=== PATIENT | female | born 1965 | race Caucasian/White ===

== ENCOUNTER 2025-01-02 08:20 | Outpatient (CLI) | payer BC, SELFPAY ==
--- OUTSIDE RECORDS SUMMARY | 2025-01-02 08:30 | XMS_ITS ---
Author Organization [facility] Address [address] [id number] Care Team Providers Care Resource Conservationist Name Role Phone Andrew Verma MD Primary Care Provider [phone] Active Problems Problem Noted Date Diagnosed Date Need for hepatitis B screening test 11/10/2024 Weight loss 11/10/2024 Assessment & Plan (11/10/2024 4:55 PM HAND TENNIS BALL COVERER): 100 lb weight loss compared weights from 2013 to present weight.. Had bariatric surgery prior to 2019. She has lost 57 lb dating back to 2022 maintained on Zenpep bound/GLP 1 GLP injectable product once weekly was prescribed by another provider Flu syndrome 10/09/2024 Assessment & Plan (10/09/2024 6:00 PM HAND TENNIS BALL COVERER): Patient currently has a flu feeling very fatigued and run down she tested positive for the flu approximately 10 days ago. Was not this at that time she did not get any antiviral medication. Subsequently she has been to urgent care type facility found no I have otitis media . Added on Augmentin she called after 3 days was not helping her. Patient has a salty taste in her mouth for last several days. She is very tired I have given her back to work slip for next week. Chest x-ray was done because of harsh coughing and level of illness x-ray was negative for any evidence of pneumonia. Acute noninfective otitis externa of both ears 0 10/09/2024 Assessment & Plan (10/09/2024 5:59 PM HAND TENNIS BALL COVERER): Patient went to urgent Care facility advised she had the otitis media her exam today ears are perfectly normal she complains of a throbbing behind her ears she also has the flu. She did call me after 3 days of antibiotics Augmentin that were not working I put her on Levaquin she took 1 tablet and made her feel horrible feel tired run down dizzy here. Acute cough 10/09/2024 Assessment & Plan (10/09/2024 6:01 PM HAND TENNIS BALL COVERER): Acute cough for several days x-rays negative she is bringing up clear sputum. Supportive care at this time Fatigue 10/08/2023 Assessment & Plan (10/09/2024 5:58 PM HAND TENNIS BALL COVERER): Patient currently has a flu feeling very fatigued and run down she tested positive for the flu approximately 10 days ago. Was not this at that time she did not get any antiviral medication. Subsequently she has been to urgent care type facility found no I have otitis media . Added on Augmentin she called after 3 days was not helping her. Assessment & Plan (10/08/2023 5:45 PM HAND TENNIS BALL COVERER): Fatigue shortness breath depression. Will check a B12 level she has not been done for several years she is status post GI bypass surgery. Has LS TSH level minimal however she is under care of endocrinology for status post thyroidectomy.. We will see this patient back in 4-6 weeks evaluate her fatigue status other component that she is on metoprolol 25 mg per day that has a small possibility this is causing her fatigue. SOB (shortness of breath) on exertion 10/08/2023 Assessment & Plan (10/08/2023 5:48 PM HAND TENNIS BALL COVERER): Patient complains of shortness of breath on exertion sometimes walking to the mailbox often times patients stopping completing shopping because of shortness of breath.. No chest pain no palpitation no chest tightness. Patient's peak flow is 460 is above 100% of expected question whether not this lady is anemic causing fatigue and shortness of breath workup in process. Patient's ambulatory pulse oximeter was completely normal Weight gain 12/25/2022 Grief at loss of child 06/18/2022 Assessment & Plan (12/26/2022 1:51 PM CDT): Patient advised me that her insurance company would not cover grief counseling. Advised to contact insurance company on who they will cover for for depression she can see someone for behavioral health issues regarding depression. Assessment & Plan (06/18/2022 5:36 PM CDT): Patient's son was killed in the last 60 days an industrial accident he was in his early 20s. Patient's [id number] are 2 small children now living with her. I have referred this patient grief counseling. Also made adjustments and a depressant medication. Hypothyroidism (acquired) 05/04/2020 Assessment & Plan (11/10/2024 4:48 PM HAND TENNIS BALL COVERER): Mg daily her medical charge entry specialist Dr. [facility] has changed her over to levothyroxine 200 mcg daily. Assessment & Plan (03/01/2024 4:09 PM CDT): Patient's thyroid is managed by medical charge entry specialist [facility]. Recently changed to Armor thyroid tablets 30 mg daily she thinks this has also helped her with her mood and weight changes. Assessment & Plan (11/11/2021 4:27 PM HAND TENNIS BALL COVERER): TSH level is 8.8 she had a maximum dose of 300 mcg per day of levothyroxine. This patient is taking calcium/Tums for heartburn which may be interfering with the absorption of her levothyroxine. Patient will discontinue Tums. Check TSH level in 2 months Assessment & Plan (07/05/2021 12:59 PM CDT): Update patient's TSH level today Melanocytic nevus of ear, left 05/30/2019 Assessment & Plan (05/30/2019 9:13 AM CDT): Continue to use Aquaphor for one more week May have hair done next Follow up as needed Finish antibiotics Preventative health care 03/22/2019 Assessment & Plan (11/10/2024 4:46 PM HAND TENNIS BALL COVERER): History and physical completed patient's health risk assessment health maintenance reviewed and addressed. Feels well she is getting pass her previous upper respiratory tract symptoms. She is losing weight on purpose. Her BMI is down to 30 Assessment & Plan (10/08/2023 5:41 PM HAND TENNIS BALL COVERER): History and physical completed patient's health risk assessment health maintenance reviewed in addressed. Patient complains of shortness of breath and component of fatigue please see assessment and plan. DNA Cologuard needs to be done due November of 2023. She vaccine discussed patient is committed to complete this Assessment & Plan (06/18/2022 5:34 PM CDT): History and physical completed health risk assessment health maintenance reviewed in addressed. Patient's DNA Cologuard test is still current advised patient to update/get most recent COVID vaccine well as flu vaccine since his patient's last visit with me she has had a tragedy in her life her son proximally 22 years old was killed in industrial accident.. Has been in the last 60 days and she is undergoing grief. Assessment & Plan (12/03/2020 4:57 PM HAND TENNIS BALL COVERER): History and physical completed patient's health risk assessment health maintenance reviewed in addressed. Patient did have a DNA Cologuard study with last year in results were negative. Tdap vaccine is postponed patient please COVID vaccine. Patient is aware the COVID vaccine and is available AMS. Assessment & Plan (05/08/2020 4:55 PM CDT): History and physical completed patient health risk assessment health maintenance reviewed. 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 Status post radioactive iodine thyroid ablation 10/23/2017 Overview (04/23/2023): Received 50 mCi of I-131 as thyroid ablative therapy 12/26/2013. Major depressive disorder, r ecurrent episode, moderate with anxious distress 05/11/2017 Assessment & Plan (03/01/2024 4:04 PM CDT): Significant improvement in mood patient feels happy not depressed at all she gives a lot of credit to this to her change in her weight. She has taking the medications Zepbound for weight loss in his working. Paying [id number] she feels as well worth it with response she is gotten. No change in depression medications. Zoloft 100 mg twice a day. Assessment & Plan (10/08/2023 5:43 PM HAND TENNIS BALL COVERER): Patient complains of fatigue other component she has anhedonia. Workup for fatigue in process will see this patient about 6 weeks may have to make changes in her antidepressant medication or refer to psychiatry Assessment & Plan (12/26/2022 1:55 PM CDT): Patient's depression is worse she advised me she is basically sitting at home and eating has representation of her depression. Patient's previous GI bypass surgery and had made a promise to herself she would not regain the weight. He is gained 27 since August of 2022. Increase Zoloft to 200 mg daily. Questions is a part of on reaction her compulsive disorder since grief from loss of her son May 2022. Was killed in industrial accident Assessment & Plan (06/18/2022 5:35 PM CDT): Patient is on Zoloft 100 mg daily. Past 60 days she has had a tragic her son killed in a dose right accident her her depression is worse. Increase Zoloft 100 mg b.i.d.. Referring to grief counseling. Assessment & Plan (07/05/2021 12:58 PM CDT): Patient's taking Zoloft 100 mg per day increased to 200 mg. Assessment & Plan (12/03/2020 4:54 PM HAND TENNIS BALL COVERER): Patient discontinue Viibryd she was doing very well with respect to depression. Symptoms have returned her insurance would not cover Viibryd. Patient was tried on Trintellix it was not effective. At this time and given this patient's sertraline/Zoloft 100 mg daily does not improving 3 weeks she is to go up to 200 mg. Assessment & Plan (05/08/2020 4:53 PM CDT): Patient has been maintain on Viibryd 40 mg daily. Past six-month depression is become worse is a struggle to get up to go to work. I am discontinuing Viibryd this time have a disc hold that particular medicine I am starting on Trintellix 10 mg daily 2 week supply of samples progress report in 2 weeks. Patient's PHQ-9 score is 19. Assessment & Plan (03/22/2019 5:07 PM CDT): Patient depression very well controlled. Continue Viibryd 40 mg daily. Hypokalemia 02/27/2017 Overview (02/27/2017): Patient is a history of hypokalemia. States she has had her GI bypass surgery she is not taking the potassium pills secondary to inability to swallow them, are the coated 1 she cannot chew. Plans recheck potassium level today. Assessment & Plan (05/01/2017 10:10 AM CDT): Patient is now on the generic potassium tablets she tolerates. Her potassium runs between 3.0 and 3.3. She is off diuretics this may improve her potassium level. History of bariatric surgery 02/06/2017 Obesity, Class II, BMI 35-39.9 01/30/2017 Overview (04/23/2023): BMI 35.53 on 03/13/2019. 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 Her total thyroidectomy was 05/21/2012. She received 50 mCi of I-131 as thyroid ablative therapy 12/26/2013. 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 Her total thyroidectomy was 05/21/2012. She received 50 mCi of I-131 as thyroid ablative therapy 12/26/2013. Malignant neoplasm of thyroid gland 02/07/2014 Overview (12/28/2016): Thyroid cancer Post-surgical hypothyroidism 02/07/2014 Overview (04/23/2023): Postsurgical hypothyroidism Total thyroidectomy 05/21/2012. Assessment & Plan (10/08/2023 5:42 PM HAND TENNIS BALL COVERER): Patient's thyroid management is under care of medical charge entry specialist [facility] Assessment & Plan (04/23/2018 9:56 AM CDT): TSH level today Non-toxic multinodular goiter 02/07/2014 Overview (12/29/2016): NONTOX MULTINODUL GOITER Hypertension 10/16/2012 Overview (02/27/2017): Hypertension Patient's hypertension is well controlled, she has no symptoms referable to hypertension, no headaches no chest pain no TIA symptoms no edema. Assessment & Plan (03/01/2024 4:10 PM CDT): Pressures 98/62 patient feels well. No change in therapy she continues to monitor blood pressure at home as well. Takes lisinopril 5 mg daily possible at next visit will discontinue medication if blood pressure remains in great told given the fact she is losing weight this is a reasonable idea to do. Assessment & Plan (10/08/2023 5:45 PM HAND TENNIS BALL COVERER): Pressure well controlled patient however I am going to change her metoprolol to lisinopril 5 mg daily patient's fatigue possibly the metoprolol as etiology will see her back in 4-6 weeks to discuss her response to medication change. Assessment & Plan (06/18/2022 5:38 PM CDT): Depression remains well controlled patient is tolerating medication will update patient's BMP and lipid profile today. Assessment & Plan (11/11/2021 4:30 PM HAND TENNIS BALL COVERER): Blood pressure remains well patient is tolerating medication no change in therapy Assessment & Plan (12/03/2020 4:55 PM HAND TENNIS BALL COVERER): Hypertension well controlled patient tolerating medication no change in therapy Assessment & Plan (05/08/2020 4:55 PM CDT): Hypertension remains well controlled no change in therapy at this time will see this patient back in the next 4-6 months. Patient is tolerating medication. Assessment & Plan (03/22/2019 5:12 PM CDT): Hypertension well control no change in therapy at this time continue present medications patient is tolerating medicines has no symptoms referable to hypertension. Assessment & Plan (04/23/2018 5:57 PM CDT): Hypertension is unchanged. Continue current treatment regimen. Dietary sodium restriction. Regular aerobic exercise. Blood pressure will be reassessed at the next regular appointment. Assessment & Plan (05/01/2017 10:12 AM CDT): Hypertension well controlled no change in therapy continue to monitor with her weight loss possible more medicines will be eliminated. Assessment & Plan (05/01/2017 10:01 AM CDT): Patient's blood pressure is controlled she has no headaches nausea vomiting or any symptoms referable to hypertension. I am discontinuing losartan at this point. Assessment & Plan (02/28/2017 9:36 AM CDT): Hypertension is improving with lifestyle modifications. Continue current treatment regimen. Weight loss. Blood pressure will be reassessed at the next regular appointment. Class 2 severe obesity due t o excess calories with serious comorbidity and body mass index (BMI) of 36.0 to 36.9 in adult 10/16/2012 Overview (12/28/2016): Obesity Assessment & Plan (03/01/2024 4:07 PM CDT): 35 lb weight loss since a year ago patient is taking the GLP 1 Zepbound/tirzepatide. He has not at maximum dose in his still improving. Her goal of 150 lb has a target weight is very realistic. Assessment & Plan (05/08/2020 4:52 PM CDT): Patient has regained some weight she is disappointed over this occurring. Present weight is 1994 years ago she was 300 lb. He had GI bypass surgery 2-3 years ago.. Denies that she has drifted away from recommended dietary choices Assessment & Plan (03/22/2019 5:10 PM CDT): Patient's underwent bypass surgery she has lost 106 lb in the last 3 years her weight is pretty much stabilized at this time. She is still making attempts sick continue lifestyle changes as well as lose weight. Assessment & Plan (04/23/2018 6:00 PM CDT): Patient has had gastric bypass surgery over year ago. she is down approximately 50 lb from a year ago. Weight appears of level of at this point her body mass index at this time is 34.39. Patient's intentions are to continue these in a least another 20 lb. Assessment & Plan (05/01/2017 10:11 AM CDT): This patient has lost 76 pounds since October following a GI bypass surgery. She is averaging 12 pounds per month and weight loss. She does not feel weak in fatigue and does not have an appetite. Her self-esteem is improved. She will continue follow-up with the bariatric surgery. Assessment & Plan (05/01/2017 9:59 AM CDT): Patient continues to lose weight status post GI bypass surgery. She is not hungry she has no problems with bowel and no current symptoms at this time. She does follow up with bariatric surgeon. Assessment & Plan (02/27/2017 12:48 PM CDT): This patient had GI bypass surgery at [place] on December 22, 2016 and has lost approximately 40 pounds. She has a follow-up visit and to the month. She informs we have follow-up laboratory studies will be done at that time. Depression 10/16/2012 Overview (12/29/2016): Depression Assessment & Plan (11/10/2024 4:49 PM HAND TENNIS BALL COVERER): Depression in remission on sertraline 100 mg daily Assessment & Plan (04/23/2018 5:58 PM CDT): Patient depression is very stable it has improved since her last visit. No change in therapy. 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 Assessment & Plan (05/01/2017 10:09 AM CDT): . Patient's depression slowly improved. Patient's notices that she is not as intense in anger or is frequently she has been in the past. She still does not like leaving the house 6 months she only left house to come to the doctor's office . Now she will go someplace is with her daughter in preparation for daughter's wedding next month. She still does not like being in public and feels that is a strain on her. She is taking Viibryd. She is repetitive thoughts. She makes plans of doing things and cannot follow through. She is willing to Susanna with daughter counselor but not yet willing to see Psychiatry. Plans refer her to [facility] psychological services. Patient states she will accept this informant therapy for her. Assessment & Plan (05/01/2017 9:58 AM CDT): . Patient continues to have some depression symptoms slight improvement. Will continue Viibryd. Gastroesophageal reflux disease 10/16/2012 Overview (12/29/2016): GERD (gastroesophageal reflux disease) Assessment & Plan (11/11/2021 4:29 PM HAND TENNIS BALL COVERER): Patient taking Tums sometimes 2 sometimes min is 6 per day is not very effective half to time. However the Tums interfering possible with her thyroid medication. Plans patient will take Prevacid [id number] advised to take 2 tablets she will take her thyroid medicine in the morning and Prevacid in the evening to prevent interference with levothyroxine absorption. Current Treatment and Therapy Plans No current plan information found. Past Treatment and Therapy Plans Resolved Problems Problem Noted Date Diagnosed Date Resolved Date Cholecystitis 08/24/2022 12/25/2022 Pneumonia due to COVID-19 virus 08/01/2021 12/25/2022 Assessment & Plan (11/11/2021 4:31 PM HAND TENNIS BALL COVERER): Patient's 95% back to normal following COVID pneumonia Assessment & Plan (08/09/2021 3:35 PM HAND TENNIS BALL COVERER): Patient is improving she notice less coughing, myalgia has decreased significantly. Patient is still short of breath but is improvement compared 1 week ago. Within 2 days of starting prednisone she felt much better she is out of prednisone at this time. He is having a use albuterol 4 times a day. I am going to put her back on prednisone 20 mg daily for 5 days. She has a chest x-ray coming up 08/15/2021. I am going to get a glucose level at that time she has some vision changes question whether not her sugars very high causing vision problems. Forms filled out for return to work August 24. Assessment & Plan (08/01/2021 3:06 PM HAND TENNIS BALL COVERER): Patient has had continued complications post covid 19 diagnosis on 07/20/21. Symptoms began originally around 07/13/21. She last week on 07/28/[address] chest and CXR suggestive of covid 19 pneumonia. She was started on antibiotics as discussed with physician and she will complete. We held on steroids as she had just completed a medrol dose pack from ortho about a week prior. She however, today has continued reports of fever, fatigue and SOB with activity. On exam oxygen saturation normal at 99%, but crackles noted on the left. We will begin steroids, have her continue antibiotic, inhaler and symptom management. She will return in one week for follow up or sooner if needed. COVID-19 virus detected 07/20/2021/0 11/2022 Assessment & Plan (07/27/2021 2:58 PM CDT): Patient was seen on 07/20/21 and tested for covid 19 and was positive. She was sent for monoclonal antibody infusion, but continues to feel poorly. She continues to report congestion, sinus pressure and now chest tightness and cough. On exam today her oxygen saturation was 99%, but some faint crackles on the left noted. She will be sent for labs and CXR to r/o covid 19 pneumonia. We will send albuterol inhaler for cough and shortness of breath. We will also send tessalon perles for cough. She will continue symptom management at this time and will remain off work until follow up next week. She will call or return sooner if needed. Assessment & Plan (07/20/2021 2:54 PM CDT): Patient presents with sinus pressure, cough, congestion, and fevers. She reports symptoms started 7 days ago. She was rapid tested for covid 19 and testing was positive. She was offered monoclonal antibody infusion and she is agreeable, will send order. She was instructed to continue with symptom management. She will remain off work at this time. She will call, return or go to ER with increasing shortness of breath, fever, cough or other concerns. Scalp laceration 05/09/2021 08/09/2021 Assessment & Plan (05/09/2021 3:49 PM CDT): Patient was seen in urgent care 8 days ago after sustaining a small laceration to the scalp. She reports she feel backwards in boat and hit head. No loss of consciousness associated with injury. She reports still has some tenderness to touch, but overall improving. Completed her antibiotic yesterday. Wound appears clean with no signs of infection. Wound edges well approximated. Area cleaned with betadine and 5 alison removed. Patient tolerated well. She was instructed to keep area clean and dry. To avoid vigorous scrubbing while washing. She was instructed should she have pain, discharge, redness, warmth, erythema or fever to call. She will return next month as scheduled or sooner if needed. Acute cystitis without hematuria 05/04/2020 12/03/2020 Assessment & Plan (05/08/2020 4:54 PM CDT): Patient called in a few weeks dysuria placed on Macrobid. This has not helped her. Patient will get a UA cm. Lesion of ear canal 03/22/2019 11/11/19 22 Assessment & Plan (04/01/2019 5:25 PM CDT): Excision of 1.2 cm x 1 cm raised darkly pigmented lesion on the left posterior scalp 7 mm x 6 mm left anterior scalp and 7 mm x 7 mm left anterior ear helix lesion with Frozen section, Monitored anesthesia care Risks and complications: Anesthesia, bleeding, infection, benign versus malignant pathology, recurrence of lesion, injury to arteries, nerves and veins, scarring and need for further treatment Assessment & Plan (03/22/2019 5:11 PM CDT): Patient's lesion on her ear it aggravates her. Will refer to her nose and throat she also has a scalp that can be removed. Skin lesion of scalp 03/22/2019 021 Assessment & Plan (04/01/2019 5:25 PM CDT): Excision of 1.2 cm x 1 cm raised darkly pigmented lesion on the left posterior scalp 7 mm x 6 mm left anterior scalp and 7 mm x 7 mm left anterior ear helix lesion with Frozen section, Monitored anesthesia care Risks and complications: Anesthesia, bleeding, infection, benign versus malignant pathology, recurrence of lesion, injury to arteries, nerves and veins, scarring and need for further treatment Dizzinesses 04/23/2018 12/03/2020 Assessment & Plan (04/23/2018 5:56 PM CDT): Patient has been feeling dizzy for about 3 weeks sometimes she feels nauseated. Sometimes she has of aches is feeling of pressure on left side of her head. She is only taking Tylenol for this discomfort. She cannot take NSAIDs she is status post gastric bypass surgery. She has no diplopia. Plans at this time trial of Antivert/meclizine next 3-7 days. This does not resolve probably get a MRI of her head are referred to Ear Nose and Throat. Patient on no new medications at this time. Patient understands give me a progress report next few days regarding her symptoms. Abdominal bloating 05/24/2017 Assessment & Plan (05/24/2017 5:35 PM CDT): Patient complains of a rash on a lower abdominal discomfort she is concerned that she may have shingles .. On exam she has no rash present. Complains of bloating and slightly tender no rebound tenderness. Patient had GI bypass surgery done October 2016 she has lost 82 pounds advised me she sore her bariatric surgical staff today and they recommended see me for shingles evaluation. Assessment abdominal blade bloating. I gave her information regarding bloating taken from the up-to-date medical source. Observation no further treatment. Right knee pain 05/01/2017 12/25/2022 Assessment & Plan (07/05/2021 12:59 PM CDT): Patient denies bilateral knee pain get x-rays of both knees which she has a GI bypass patient she cannot take non steroidal anti-inflammatorys patient's advised utilize arthritis Tylenol lumbar topical meds. She is advised she may need injections in her knees. Assessment & Plan (05/24/2017 5:36 PM CDT): Patient complains of knee pain right knee predominantly bending her knee she has pain over the tibial and fibular heads. No crepitation exact etiology pain undetermined patient can walk and do things without difficulty. Plans patient to check with her bariatric surgeon whether she can utilize Voltaren gel which is a topical non steroidal anti-inflammatory. Advised patient that the usual amount absorption into the blood stream from topical ointments this is this is less than 3 percent. Patient may end up seen Orthopedics for the evaluation. Assessment & Plan (05/01/2017 10:14 AM CDT): Patient is spirits right knee pain. He states that she sleeps on her right side and will wake up during the night because of pain in right knee. During the day pain in her knee basically with turning to get out of her truck. Plans advised patient obviously she has. Sleeping on the right side predominantly this requires teaching herself a new habit. Arthritis Tylenol does help the pain she averages 3 per day. Examination knees crepitation both knees without pain. Intestinal malabsorption 02/06/2017 Benign essential hypertension 08/31/2016 12/03/2020 Iron deficiency anemia 10/16/201208/09 Overview (12/28/2016): Iron deficiency anemia
--- OUTSIDE RECORDS SUMMARY | 2025-01-02 08:31 | XMS_ITS | Clinical Summary ---
Author Organization [facility] Address [address] [place] [id number] Care Team Providers Care Material Man Name Role Phone None, Provider MD Primary Care Provider Unavaila ble Allergies Active Allergy Reactions Criticality Noted Date Comments Codeine Hives 05/01/2021 Hydrocodone Hives 05/01/2021 Hydromorphone Hives 05/01/2021 Medications traMADol 50 MG tabletIndication s:Acute Pain < 3 Day Supply Take 1 tablet (50 mg total) by mouth every 6 (six) hours as needed for Pain. Indications : Acute Pain < 3 Day Supply 12 tablet 05/01/2021 Active Social History Tobacco Use Types Packs/Day Years Used Date Smoking Tobacco: Never Assessed Comments Unknown Sex and Gender Information Value Date Recorded Sex Assigned at Not on file Legal Sex Female 5:53 PM CDT Gender Identity Not on file Sexual Orientation Not on file Last Filed Vital Signs Vital Sign Reading Time Taken Comments Blood Pressure 131/81 05/01/2021 7:00 PM CDT Pulse 59 05/01/2021 7:00 PM CDT Temperature 36.7 C (98 F) 05/01/2021 5:54 PM CDT Respiratory Rate 18 05/01/2021 7:00 PM CDT Oxygen Saturation 99% 05/01/2021 7:00 PM CDT Inhaled Oxygen Concentration - - Weight 86.2 kg (190 lb) 05/01/2021 5:54 PM CDT Height 154.9 cm (5' 1 ) 05/01/2021 5:54 PM CDT Body Mass Index 35.9 05/01/2021 5:54 PM CDT Plan of Treatment Health Maintenance Due Date Last Done Comments Cervical Cancer Screening Pa p Smear (Age 30 to 64) Every 3 Years 1966 Colorectal Cancer Screening Colonoscopy (10 Years) 1966 Annual Physical 1969 Hepatitis C 1984 DTaP, Tdap and Td Vaccines ( 1 - Tdap) 1985 Hepatitis B Vaccines (1 of 3 - 19+ 3-dose series) 1985 Cervical Cancer Screening Pa p with HPV Testing (Age 30 to 64) Every 5 Years 1996 Cervical Cancer Screening with HPV 1996 Mammogram Screening 2006 Zoster Vaccines (1 of 2) 2016 COVID-19 Vaccine (2 - 2023-2 5 season) 2024 03/15/2021 Meningococcal B Vaccine Aged Out No l onger eligible based on patient's age to complete this topic Meningococcal Vaccine Aged Out No ferdinand meg eligible based on patient's age to complete this topic Pneumococcal Vaccine: Pediat rics (0 to 5 Years) and At-Risk Patients (6 to 64 Years) Aged Out No longer eligi ble based on patient's age to complete this topic RSV Immunizations Under 20 Months Aged Out No longer eligible based on patient's age to complete this topic Care Teams Material Man Relationship Specialty Start Date End Date None, Provider, PCP - General 05/01/21
--- OUTSIDE RECORDS SUMMARY | 2025-01-02 08:31 | XMS_ITS | Encounter Summary ---
[facility] Organization [facility] Address 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
--- OUTSIDE RECORDS SUMMARY | 2025-01-02 08:31 | XMS_ITS | Clinical Summary ---
Author Organization [facility] Address [address] [place] [address] Care Team Providers Care State Attorney Name Role Phone Andrew Verma MD Primary Care Provider [phone] Allergies Active Allergy Reactions Criticality Noted Date Comments Codeine Hives Medium 05/01/2021 Hydrocodone Nausea & Vomiting Low 08/05/2018 Other reaction(s): Hives Hydromorphone Nausea & Vomiting Low 05/01/2021 Other reaction(s): Hives Morphine Itching Low Nsaids (Non-Steroidal Anti-Inflammatory Drug) Other (See comments) Low 05/13/2019 Gastric Bypass Sulfa (Sulfonamide Antibiotics) Unknown Low 09/22/2015 Unknown reaction as a child Medications acetaminophen (TYLENOL) 500 mg tablet Take 1 tablet (500 mg total) by mouth every 6 (six) hours as needed for pain 30 tablet 9 Active lansoprazole (PREVACID SOLUTAB) 30 mg disintegrating tablet Take 1 tablet (30 mg total) by mouth daily Active topiramate (TOPAMAX) 100 mg tablet Take 1 tablet (100 mg total) by mouth daily To be taken with dinner meal. 90 tablet 3 Active sertraline (ZOLOFT) 100 mg tablet TAKE 1 TABLET TWICE A DAY 180 tablet 3 4 Active lisinopriL (PRINIVIL,ZESTRIL) 5 mg tablet TAKE 1 TABLET DAILY 90 tablet 1 4 Active potassium chloride ER (Klor-Con M20) 20 mEq CR tablet TAKE 1 TABLET DAILY 90 tablet 1 4 Active benzonatate (TESSALON) 200 mg capsule 5 Active ondansetron ODT (ZOFRAN-ODT) 4 mg disintegrating tablet DISSOLVE 1 TABLET ON THE TONGUE EVERY 8 HOURS NEEDED FOR NAUSEA OR VOMITING 5 Active Zepbound 10 mg/0.5 mL pen injector Inject 0.5 mL (10 mg total) under the skin every 7 days 4 Active levothyroxine (SYNTHROID) 200 mcg tablet Take 1 tablet (200 mcg total) by mouth equipment installation professional before breakfast 5 Active estradioL (ESTRACE) 2 mg tabletIndications: Menopausal symptoms Take 1 tablet (2 mg total) by mouth daily 90 tablet 3 5 Active Active Problems Problem Noted Date Diagnosed Date Need for hepatitis B screening test 11/10/2024 Weight loss 11/10/2024 Assessment & Plan (11/10/2024 4:55 PM SENIOR SOFTWARE QA ENGINEER): 100 lb weight loss compared weights from 2013 to present weight.. Had bariatric surgery prior to 2019. She has lost 57 lb dating back to 2022 maintained on Zenpep bound/GLP 1 GLP injectable product once weekly was prescribed by another provider Flu syndrome 10/09/2024 Assessment & Plan (10/09/2024 6:00 PM SENIOR SOFTWARE QA ENGINEER): Patient currently has a flu feeling very [...] 10/09/2024 Assessment & Plan (10/09/2024 5:59 PM SENIOR SOFTWARE QA ENGINEER): Patient went to urgent Care facility advised [...] 10/09/2024 Assessment & Plan (10/09/2024 6:01 PM SENIOR SOFTWARE QA ENGINEER): Acute cough for several days x-rays negative she is bringing up clear sputum. Supportive care at this time Fatigue 10/08/2023 Assessment & Plan (10/09/2024 5:58 PM SENIOR SOFTWARE QA ENGINEER): Patient currently has a flu feeling very [...] her. Assessment & Plan (10/08/2023 5:45 PM SENIOR SOFTWARE QA ENGINEER): Fatigue shortness breath depression. Will check a [...] 10/08/2023 Assessment & Plan (10/08/2023 5:48 PM SENIOR SOFTWARE QA ENGINEER): Patient complains of shortness of breath on [...] he was in his early 20s. Patient's [id number] are 2 small children now living with her. I have referred this patient grief counseling. Also made adjustments and a depressant medication. Hypothyroidism (acquired) 05/04/2020 Assessment & Plan (11/10/2024 4:48 PM SENIOR SOFTWARE QA ENGINEER): Mg daily her bag loader Dr[facility] has changed her over to levothyroxine 200 mcg daily. Assessment & Plan (03/01/2024 4:09 PM CDT): Patient's thyroid is managed by bag loader [facility]. Recently changed to Armor thyroid tablets 30 mg daily she thinks this has also helped her with her mood and weight changes. Assessment & Plan (11/11/2021 4:27 PM SENIOR SOFTWARE QA ENGINEER): TSH level is 8.8 she had a [...] 03/22/2019 Assessment & Plan (11/10/2024 4:46 PM SENIOR SOFTWARE QA ENGINEER): History and physical completed patient's health risk assessment health maintenance reviewed and addressed. Feels well she is getting pass her previous upper respiratory tract symptoms. She is losing weight on purpose. Her BMI is down to 30 Assessment & Plan (10/08/2023 5:41 PM SENIOR SOFTWARE QA ENGINEER): History and physical completed patient's health risk [...] grief. Assessment & Plan (12/03/2020 4:57 PM SENIOR SOFTWARE QA ENGINEER): History and physical completed patient's health risk [...] for weight loss in his working. Paying [id number] she feels as well worth it with response she is gotten. No change in depression medications. Zoloft 100 mg twice a day. Assessment & Plan (10/08/2023 5:43 PM SENIOR SOFTWARE QA ENGINEER): Patient complains of fatigue other component she [...] mg. Assessment & Plan (12/03/2020 4:54 PM SENIOR SOFTWARE QA ENGINEER): Patient discontinue Viibryd she was doing very [...] 05/21/2012. Assessment & Plan (10/08/2023 5:42 PM SENIOR SOFTWARE QA ENGINEER): Patient's thyroid management is under care of bag loader [facility] Assessment & Plan (04/23/2018 9:56 AM [...] do. Assessment & Plan (10/08/2023 5:45 PM SENIOR SOFTWARE QA ENGINEER): Pressure well controlled patient however I am [...] today. Assessment & Plan (11/11/2021 4:30 PM SENIOR SOFTWARE QA ENGINEER): Blood pressure remains well patient is tolerating medication no change in therapy Assessment & Plan (12/03/2020 4:55 PM SENIOR SOFTWARE QA ENGINEER): Hypertension well controlled patient tolerating medication no [...] This patient had GI bypass surgery at [facility] on December 22, 2016 and has lost approximately 40 pounds. She has a follow-up visit and to the month. She informs we have follow-up laboratory studies will be done at that time. Depression 10/16/2012 Overview (12/29/2016): Depression Assessment & Plan (11/10/2024 4:49 PM SENIOR SOFTWARE QA ENGINEER): Depression in remission on sertraline 100 mg daily Assessment & Plan (04/23/2018 5:58 PM CDT): Patient depression is very stable it has improved since her last visit. No change in therapy. 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 She is willing to [place] with daughter counselor but not yet willing to see Psychiatry. Plans refer her to [place]' psychological services. Patient states she will accept this informant therapy for her. Assessment & Plan (05/01/2017 9:58 AM CDT): . Patient continues to have some depression symptoms slight improvement. Will continue Viibryd. Gastroesophageal reflux disease 10/16/2012 Overview (12/29/2016): GERD (gastroesophageal reflux disease) Assessment & Plan (11/11/2021 4:29 PM SENIOR SOFTWARE QA ENGINEER): Patient taking Tums sometimes 2 sometimes min is 6 per day is not very effective half to time. However the Tums interfering possible with her thyroid medication. Plans patient will take Prevacid [id number] advised to take 2 tablets she will take her thyroid medicine in the morning and Prevacid in the evening to prevent interference with levothyroxine absorption. Resolved Problems Problem Noted Date Diagnosed Date Resolved Date Cholecystitis 08/24/2022 12/25/2022 Pneumonia due to COVID-19 virus 08/01/2021 12/25/2022 Assessment & Plan (11/11/2021 4:31 PM SENIOR SOFTWARE QA ENGINEER): Patient's 95% back to normal following COVID pneumonia Assessment & Plan (08/09/2021 3:35 PM SENIOR SOFTWARE QA ENGINEER): Patient is improving she notice less coughing, [...] 24. Assessment & Plan (08/01/2021 3:06 PM SENIOR SOFTWARE QA ENGINEER): Patient has had continued complications post covid [...] or sooner if needed. COVID-19 virus detected 07/20/2021 04/0 11/2022 Assessment & Plan (07/27/2021 2:58 PM [...] anemia 10/16/201208/09 Overview (12/28/2016): Iron deficiency anemia Encounters Date Type Department Care Team Description 11/11/2024 Telephone [facility] [address] [place] [address] Yojana Clement RN 11/11/2024 Results Follow-Up [facility] [address] [place] [address] Andrew Verma MD 11/10/2024 3:00 PM SENIOR SOFTWARE QA ENGINEER Office Visit [facility] [address] [place] [address] Ameena Shell DO Encounter for annual routine gynecological examination (Primary Dx); Encounter for screening mammogram for malignant neoplasm of breast; Menopausal symptoms 11/10/2024 2:10 PM SENIOR SOFTWARE QA ENGINEER Lab [facility] [address] [place] [address] Primary hypertension; History of thyroid cancer 11/10/2024 1:30 PM SENIOR SOFTWARE QA ENGINEER Office Visit [facility] [address] [place] [address] Andrew Verma MD Colon cancer screening (Primary Dx); Need for hepatitis B screening test; Primary hypertension; Status post radioactive iodine thyroid ablation; Hypothyroidism (acquired); Weight loss 11/10/2024 Orders Only [facility] [address] [place] [address] Ameena Shell DO Encounter for screening mammogram for malignant neoplasm of breast (Primary Dx) 10/13/2024 [facility]phone [facility] [address] [place] [address] Andrew Verma MD Earache 10/09/2024 9:45 AM SENIOR SOFTWARE QA ENGINEER Ancillary Procedure [facility] [address] [facility] [address] [place] [address] SOB (shortness of breath) on exertion 10/09/2024 9:00 AM SENIOR SOFTWARE QA ENGINEER [facility] [address] [facility] [address] [place] [address] Andrew Verma MD SOB (shortness of breath) on exertion (Primary Dx); Acute cough; History of thyroid cancer; Flu syndrome 10/08/2024 Telephone [facility] [address] [facility] [address] [place] [address] Andrew Verma MD Earache 10/05/2024 9:00 AM SENIOR SOFTWARE QA ENGINEER Office Visit [facility] at [address] [address] Jose Ramon Bailey NP Acute suppurative otitis media of both ears without spontaneous rupture of tympanic membranes, recurrence not specified (Primary Dx); Influenza A from Last 3 Months Immunizations Immunization Administration Dates Next Due Influenza, Unspecified 06/24/2023(Deferred: [place] ent decision) Surgical History Surgery Date Site/Laterality Comments SECTION 1993 & 2000 TONSILLECTOMY as a child TOTAL ABDOMINAL HYSTERECTOMY 09/24/2010 - 09/23/2011 for menorrhagia, fibroids, anemia TOTAL THYROIDECTOMY 09/24/2011 - 09/23/2012 for thyroid cancer GASTRIC BYPASS 09/24/2016 - 09/23/2017 BREAST BIOPSY 09/24/2008 - 09/23/2009 Left Benign BREAST CYST EXCISION 09/24/1987 - 09/23/1988 Left Benign CHOLECYSTECTOMY ABDOMINAL SURGERY BARIATRIC SURGERY ILIANA-EN-Y PROCEDURE SECTION Medical History Medical History Date Comments Anemia Hypertension Hyperlipidemia Depression History of thyroid cancer PONV (postoperative nausea and vomiting) Sleep apnea Wt. Loss 150lbs; last sleep study ? Gastroesophageal reflux disease Gastric Bypass 11/2015; resolved Cancer (HCC) Obesity Thyroid disease Hyperparathyroidism Anxiety Arthritis Family History Medical History Relation Name Comments Heart attack Brother Ed Geovani 2 brothers Bladder Cancer Father Ed Coronary artery disease Father Ed Heart attack Father Ed Hypertension Father Ed Peripheral vascular disease Father Ed Stroke Father Ed COD at age 84 Breast cancer Maternal Grandmother Meg Arthritis Mother Evi Breast cancer Mother Evi Coronary artery disease Mother Evi Hypertension Mother Evi Stroke Mother Evi COD at age 71 Relation Name Status Comments Brother Ed Geovani Father Ed (Age 84) Maternal Grandmother Meg Mother Evi (Age 71) Social History Tobacco Use Types Packs/Day Years Used Date Smoking Tobacco: Never Smokeless Tobacco: Never Tobacco Cessation:Counseling Given: Not Answered Alcohol Use Standard Drinks/Week Comments Yes 0 (1 standard drink = 0.6 oz pur e alcohol) very rare PHQ-2 Answer Date Recorded PHQ-2 Total Score (If total score is 3 or more points, staff should administer the PHQ-9) 4 11/10/2024 PHQ-9 Answer Date Recorded PHQ-9 Total Score 7 11/10/2024 Comments No Sex and Gender Information Value Date Recorded Sex Assigned at Not on file Legal Sex Female 6:28 AM SENIOR SOFTWARE QA ENGINEER Gender Identity Not on file Sexual Orientation Not on file Occupation Industry Job Start Date Job End Date [place] Not on file Not on file Not on file Obstetrics History Para Term AB IAB SAB Ectopic Multiple Livin g Live Births 2 2 2 0 0 0 0 0 0 2 2 Date Outcome GA Total Labor Labor/2nd/3rd Weight Sex Type Anes PTL Raquel A1 A5 Name Clin Term Term Last Filed Vital Signs Vital Sign Reading Time Taken Comments Blood Pressure 116/68 11/10/2024 2:23 PM SENIOR SOFTWARE QA ENGINEER Pulse 98 11/10/2024 1:34 PM SENIOR SOFTWARE QA ENGINEER Temperature 36.6 C (97.8 F) 11/10/2024 1:34 PM SENIOR SOFTWARE QA ENGINEER Respiratory Rate 16 11/10/2024 1:34 PM SENIOR SOFTWARE QA ENGINEER Oxygen Saturation 97% 11/10/2024 1:34 PM SENIOR SOFTWARE QA ENGINEER Inhaled Oxygen Concentration - - Weight 75.3 kg (166 lb) 11/10/2024 2:23 PM SENIOR SOFTWARE QA ENGINEER Height 157.5 cm (5' 2 ) 11/10/2024 2:23 PM SENIOR SOFTWARE QA ENGINEER Body Mass Index 30.36 11/10/2024 2:23 PM SENIOR SOFTWARE QA ENGINEER Plan of Treatment Health Maintenance Due Date Last Done Comments Colon Cancer Screening-Colonoscopy 1966 DTaP/Tdap/Td Vaccine (1 - Tdap) 1977 Zoster Vaccine (1 of 2) 2016 Breast Cancer Screening-Mammogram 12/03/2021 12/03/2020, 12/03/2020, 08/19/2019 Covid-19 Vaccine ( season) 2024 03/15/2021 Influenza Vaccine (Season Ended) 2025 Depression Screening 11/10/2025 11/10/2024, 11/10/2024, 12/25/2022, Additional history exists Regular Well Visit/Exam 18-64 11/10/2025 11/10/2024, 11/10/2024, 10/08/2023, Additional history exists Hepatitis C Screening Completed 08/06/2019 Hepatitis B Screening Completed 11/10/2024 Pneumococcal vaccine <65 Aged Out No longer eligible based on patient's age to complete this topic Procedures Procedure Name Priority Date/Time Associated Diagnosis Comments LIPID PANEL Routine 11/10/2024 2:07 PM SENIOR SOFTWARE QA ENGINEER Primary hypertension HEPATITIS B SURFACE ANTIGEN Routine 11/10/2024 2:07 PM SENIOR SOFTWARE QA ENGINEER History of thyroid cancer HEPATITIS B CORE ANTIBODY, TOTAL Routine 11/10/2024 2:07 PM SENIOR SOFTWARE QA ENGINEER History of thyroid cancer HEPATITIS B SURFACE ANTIBODY (IMMUNE STATUS) Routine 11/10/2024 2:07 PM SENIOR SOFTWARE QA ENGINEER History of thyroid cancer XR CHEST PA LATERAL 2 VIEWS Schedule Routine, Read Routine (OP Routine) 10/09/2024 9:51 AM SENIOR SOFTWARE QA ENGINEER SOB (shortness of breath) on exertion SCREENING MAMMOGRAM 2D BILATERAL Schedule Routine, Read Routine (OP Routine) 12/03/2020 3:32 PM SENIOR SOFTWARE QA ENGINEER Encounter for screening mammogram for malignant neoplasm of breast HEPATITIS C ANTIBODY Routine 08/06/2019 10:45 AM SENIOR SOFTWARE QA ENGINEER Screening examination for venereal disease from Last 3 Months or Most Recently Relevant to Health Maintenance Results * Hepatitis B core antibody, total Blood (11/10/2024 2:07 PM SENIOR SOFTWARE QA ENGINEER) Hep B core IgG/IgM Nonreactive Nonreactive Comment:Testing performed by : [facility], [address] [place]., [address] Blood 11/10/2024 2:07 PM SENIOR SOFTWARE QA ENGINEER 11/11/2024 10:28 AM SENIOR SOFTWARE QA ENGINEER Andrew Verma MD LAB MICROBIOLOGY - GENERAL ORDERABLES Final Result Performing Organization Address [facility] Co de Phone Number [facility] [address] [place] [address] * Hepatitis B surface antibody (immune status) Blood (11/10/2024 2:07 PM SENIOR SOFTWARE QA ENGINEER) HBsAb (immune status) Nonreactive Comment: Interpretive Data Nonreactive: This result is consistent with a lack of immunity to Hepatitis B Virus when used in the setting of routine screening. Equivocal: The immune status of the individual should be further assessed, if appropriate, after consideration of clinical status, risk factors, and additional diagnostic information. Reactive: This result is consistent with immunity to Hepatitis B Virus when used in the setting of routine screening. Current interpretive data was last revised on 19. Testing performed by: [facility], [address] [place] [address]., [id number] Blood 11/10/2024 2:07 PM SENIOR SOFTWARE QA ENGINEER 11/10/2024 6:10 PM SENIOR SOFTWARE QA ENGINEER Andrew Verma MD LAB MICROBIOLOGY - GENERAL ORDERABLES Final Result Performing Organization Address [facility] Co de Phone Number ANTELMO [address] [facility] [place] [address] * Hepatitis B Surface Antigen Blood (11/10/2024 2:07 PM SENIOR SOFTWARE QA ENGINEER) HepBsAg Nonreactive Nonreactive Comment:Testing performed by : [facility], [address] [place] [address]., [id number] Blood 11/10/2024 2:07 PM SENIOR SOFTWARE QA ENGINEER 11/10/2024 6:10 PM SENIOR SOFTWARE QA ENGINEER Andrew Verma MD LAB MICROBIOLOGY - GENERAL ORDERABLES Final Result ANTELMO [id number] [facility] Department [place] [address] * Lipid panel (11/10/2024 2:07 PM SENIOR SOFTWARE QA ENGINEER) Cholesterol 174 30 - 199 mg/dL Comment: Interpretive Data Ages < or = 19 years Acceptable: <170 mg/dL Borderline high: 170-199 mg/dL High: >or= 200 mg/dL Ages > or = 20 years Desirable: <200 mg/dL Borderline high: 200-239 mg/dL High: >or= 240 mg/dL Literature References: 1. Expert Panel on Integrated Guidelines for Cardiovascular Health and Risk Reduction in Children and Adolescents. Pediatrics 2011;128:S213 2. NCEP Expert Panel. Circulation 2004;110:227 Current Interpretive Data was last revised on 2018. Testing performed by: [facility], [address] [place] [address]., [id number] Triglycerides 70 <=149 mg/dL ANTELMO BECK Comment: Interpretive Data Ages < or = 9 years Acceptable: <75 mg/dL Borderline high: 75-99 mg/dL High: >or= 100 mg/dL Ages 10 to 20 years Acceptable: <90 mg/dL Borderline high: 90-129 mg/dL High: >or= 130 mg/dL Ages > or = 20 years Desirable: <150 mg/dL Borderline high: 150-199 mg/dL High: 200-499 mg/dL Very high: >or= 499 mg/dL Literature References: 1. Expert Panel on Integrated Guidelines for Cardiovascular Health and Risk Reduction in Children and Adolescents. Pediatrics 2011;128:S213 2. NCEP Expert Panel. Circulation 2004;110:227 Current Interpretive Data was last revised on 2018. Testing performed by: [facility], [address] [place] [address]., [id number] HDL 59 >=40 mg/dL [facility] Comment: Interpretive Data Ages < or = 19 years Acceptable: >45 mg/dL Borderline low: 40-45 mg/dL Low: <40 mg/dL Ages > or = 20 years Desirable: >or= 60 mg/dL Low: <40 mg/dL Literature References: 1. Expert Panel on Integrated Guidelines for Cardiovascular Health and Risk Reduction in Children and Adolescents. Pediatrics 2011;128:S213 2. NCEP Expert Panel. Circulation 2004;110:227 Current Interpretive Data was last revised on 2018. Testing performed by: [address] [address] LDL, calculated 102 <=129 mg/dL [facility] Comment: Interpretive Data Ages < or = 19 years Acceptable: <110 mg/dL Borderline high: 110-129 mg/dL High: >or= 130 mg/dL Ages > or = 20 years Optimal: <100 mg/dL Near optimal: 100-129 mg/dL Borderline high: 130-159 mg/dL High: >160 mg/dL Calculated using the Dejuan LDL-C estimating equation. This equation was implemented on 2024. Prior to this date LDL-C was estimated using the Friedewald equation. Literature References: 1. Expert Panel on Integrated Guidelines for Cardiovascular Health and Risk Reduction in Children and Adolescents. Pediatrics 2011;128:S213 2. NCEP Expert Panel. Circulation 2004;110:227 3. Dejuan Downing al. FREDIS Cardiol. 2019January 22;5(5):540-548. doi: 10.1001/[email or web address].2020.0013 Current Interpretive Data was last revised on 2024. Testing performed by: [address] [address] Non-HDL Cholesterol 115 mg/dL [facility] Comment: Interpretive Data Ages < or = 19 years Acceptable: <120 mg/dL Borderline high: 120-144 mg/dL High: >145 mg/dL Ages > or = 20 years When triglycerides are >200 mg/dL, Non-HDL cholesterol is a secondary target of therapy with treatment goals that are 30 mg/dL greater than the LDL cholesterol target. Literature References: 1. Expert Panel on Integrated Guidelines for Cardiovascular Health and Risk Reduction in Children and Adolescents. Pediatrics 2011;128:S213 2. NCEP Expert Panel. Circulation 2004;110:227 Current Interpretive Data was last revised on 2018. Testing performed by: [facility], [address] [place] [address]., [id number] Chol/HDL ratio 3 ANTELMO Comment:Testing performed by : [facility], [address] [place] [address]., [id number] Blood 11/10/2024 2:07 PM SENIOR SOFTWARE QA ENGINEER 11/10/2024 6:10 PM SENIOR SOFTWARE QA ENGINEER Andrew Verma MD LAB BLOOD ORDERABLES Final Result Performing Organization Address City/State/[facility] Co de Phone Number ANTELMO [address] Department [place] [address] * XR Chest PA Lateral 2 Views (10/09/2024 9:51 AM SENIOR SOFTWARE QA ENGINEER) Anatomical Region Laterality Modality Body, Chest N/A Computed Radiogr aphy 10/10/2024 3:58 PM SENIOR SOFTWARE QA ENGINEER Narrative 10/10/2024 3:59 PM SENIOR SOFTWARE QA ENGINEER EXAM DESCRIPTION: XR CHEST PA LATERAL 2 VIEWS REASON FOR STUDY: cough Patient has had the flu Shortness of breath Coughing No smoke No surgery History of thyroid cancer TECHNIQUE: Frontal and lateral radiographic view(s) of the chest. COMPARISON: 08/15/2021 FINDINGS: The heart, mediastinum, and pulmonary vasculature are grossly stable. There is no definite evidence of a pneumothorax. There is no definite evidence of a pleural effusion. There are mild patchy right basilar airspace opacities. There is mild dextroscoliotic curvature of the spine with degenerative changes. IMPRESSION: Mild patchy right basilar airspace opacities, which is likely related to subsegmental atelectasis/scarring and less likely developing airspace disease. THIS IS AN ELECTRONICALLY VERIFIED FINAL REPORT 10/10/2024 3:59 PM - Electronically signed by Anette Younger D.O. PS: PS Report ID: [id number] Reading Location: [id number] Procedure Note Aren Anette Juan Carlos, DO - 10/10/2024 EXAM DESCRIPTION: XR CHEST PA LATERAL 2 VIEWS REASON FOR STUDY: cough Patient has had the flu Shortness of breath Coughing No smoke Nosurgery History of thyroid cancer TECHNIQUE: Frontal and lateral radiographic view(s) of the chest. COMPARISON: 08/15/2021 FINDINGS: The heart, mediastinum, and pulmonary vasculature are grossly stable.There is no definite evidence of a pneumothorax. There is no definite evidenceof a pleural effusion. There are mild patchy right basilar airspace opacities. There is mild dextroscoliotic curvature of the spine with degenerative changes. IMPRESSION: Mild patchy right basilar airspace opacities, which is likely related to subsegmental atelectasis/scarring and less likely developing airspacedisease. THIS IS AN ELECTRONICALLY VERIFIED FINAL REPORT 10/10/2024 3:59 PM - Electronically signed by Anette Younger D.O. PS: PS Report ID: [id number] Reading Location: [id number] Andrew Verma MD IMG XR PROCEDURES Final Re sult * Screening Mammogram 2D Bilateral (12/03/2020 3:32 PM SENIOR SOFTWARE QA ENGINEER) Anatomical Region Laterality Modality Breast Bilateral Mammography Narrative 12/06/2020 2:30 PM CDT BILATERAL DIGITAL MAMMOGRAPHY The present examination has been compared to prior imaging studies dated 19 August 2019. Mammography Findings CAD (computer-aided detection) software was utilized. The breasts are heterogeneously dense. This may lower the sensitivity of mammography. There is a biopsy clip within the right lower inner breast adjacent to a oval mass, unchanged in appearance from comparison study. Few round and punctate microcalcifications within the right breast are also unchanged. No new mass, region of architectural distortion, or suspicious microcalcification is seen within either breast. Impression There is no mammographic evidence of malignancy. Screening mammogram in 1 year is recommended. BI-RADS Category 2: Benign. PATIENT LETTER SENT Rosamaria Ross DYE RANGE OPERATOR CLOTH IMG MAMMO PROCEDURES Irma l Result * Hepatitis C antibody (08/06/2019 10:45 AM SENIOR SOFTWARE QA ENGINEER) Hep C Ab Negative Negative ANTELMO EBONY Blood specimen (specimen) 08/06/2019 10:45 AM SENIOR SOFTWARE QA ENGINEER 08/06/2019 7:35 PM SENIOR SOFTWARE QA ENGINEER Rosamaria Ross NP LAB MICROBIOLOGY - GENERA L ORDERABLES Final Result ANTELMO [id number] [address] Department [place] [address] from Last 3 Months or Most Recently Relevant to Health Maintenance Insurance [employer] [place] [employer] [place] [employer] [place] [employer] [place] Care Teams State Attorney Relationship Specialty Start Date End Date Andrew Verma MD PCP - General 3/31/17
--- OUTSIDE RECORDS SUMMARY | 2025-01-02 08:31 | XMS_ITS | Encounter Summary ---
[facility] Address [address] [place] [address] Phone Care Team Providers Care Traveling Passenger Agent Name Role Phone Andrew Verma MD Primary Care Provider [phone] Encounter Details Date Type Department Care Team (Late st Contact Info) Description 11/06/2017 Orders Only [facility] [address] [place] [address] Andrew Verma MD [address] [address] Social History Tobacco Use Types Packs/Day Years Used Date Smoking Tobacco: Never Smokeless Tobacco: Never Alcohol Use Standard Drinks/Week Comments Yes 0 (1 standard drink = 0.6 oz pur e alcohol) Comments Unknown Sex and Gender Information Value Date Recorded Sex Assigned at Not on file Legal Sex Female 6:28 AM DIRECTOR OF USER EXPERIENCE Gender Identity Not on file Sexual Orientation Not on file documented as of this encounter Plan of Treatment Not on file documented as of this encounter Procedures Procedure Name Priority Date/Time Associated Diagnosis Comments SCAN - RADIOLOGY/IMAGING 11/06/2017 11:26 AM DIRECTOR OF USER EXPERIENCE documented in this encounter Results * SCAN - RADIOLOGY/IMAGING (11/06/2017 11:26 AM DIRECTOR OF USER EXPERIENCE) Anatomical Region Laterality Modality Other us Andrew Verma MD Final Resu lt documented in this encounter Visit Diagnoses Not on filedocumented in this encounter Additional Health Concerns Infection Onset Date Last Indicated Resolved Time COVID: Suspected 07/20/2021 07/20/2021 07/20/2021 2:24 PM CDT COVID19 07/20/2021 07/20/2021 08/03/2021 3:05 AM DIRECTOR OF USER EXPERIENCE COVID: Recovered Comment:Added based on recent COVID infection. 08/03/2021 11/07/2021 12/01/2021 3:[address] COVID: Suspected 08/24/2022 08/24/2022 08/24/2022 6:58 AM DIRECTOR OF USER EXPERIENCE documented as of this encounter Care Teams Traveling Passenger Agent Relationship Specialty Start Date End Date Andrew Verma MD PCP - General 12/22/16 documented as of this encounter
--- OUTSIDE RECORDS SUMMARY | 2025-01-02 08:31 | XMS_ITS | Encounter Summary ---
Author Organization [facility] Address [address] [place] [address] Care Team Providers Care Code Official Name Role Phone Unavailable Primary Care Provider Unavailabl e Encounter Details Date Type Department Care Team (Latest Contact Info) Description 07/01/2008 Outpatient Historical HIS [facility] Monique Mitchell MD [address] [place] [address] Abnormal Mammogram, Unspecified Social History Tobacco Use Types Packs/Day Years Used Date Smoking Tobacco: Never Assessed Comments Unknown Sex and Gender Information Value Date Recorded Sex Assigned at Not on file Legal Sex Female 5:37 AM HOP STRAINER Gender Identity Not on file Sexual Orientation Not on file documented as of this encounter Plan of Treatment Not on file documented as of this encounter Procedures Procedure Name Priority Date/Time Associated Diagnosis Comments MAMMO DIAGNOSTIC UNI RIGHT W OR WO CAD Routine 07/01/2008 10:58 AM CDT XR CONSULTATION Routine 07/01/2008 10:58 AM CDT MAMMO STEREOTACTIC BREAST BX RT Routine 07/01/2008 10:57 AM CDT PATHOLOGY Routine 07/01/2008 10:40 AM CDT documented in this encounter Results * MAMMO DIGITAL DIAG UNI RIGHT (07/01/2008 10:58 AM CDT) Anatomical Region Laterality Modality Breast Right Other 07/01/2008 10:5 8 AM CDT Narrative 07/08/2008 7:57 AM CDT [facility] [address], [place] [address] Admit Date: 07/01/2008 KARTIK CORCORAN Sex: F Admit Prov: MONIQUE MCCULLOUGH Date: 1965 Primary Care Prov: VARUN MOLINA CMRN: [id number] Room: NORA SSN: [id number] IMAGING SERVICES Ordering Prov: MONIQUE MCCULLOUGH Accession Number: [id number] Addendum Pathology indicates benign fibrocystic changes. Imaging findings are concordant. This is a false positive. Recommend routine follow up with Dr. Mccullough. Assessment BIRADS: Post procedure mammograms for marker placement Recommendation: No recommendation required Dictated by: CAIT SAGE Electronically signed by: CAIT SAGE 07/08/2008 07:56 Transcribed: 07/06/2008 22:30 AMK Interpretation STEREOTACTIC BIOPSY AND FOLLOW UP 2 VIEW MAMMOGRAM, 07/01/2008. History: Parenchymal asymmetry in the right breast. Stereotactic guided core biopsy for an area of asymmetry in the inner right breast was performed. After the lesion was localized stereotactically, the overlying skin was cleansed with Betadine. 1% lidocaine buffered with sodium bicarbonate was injected for superficial anesthesia. A small 4 mm skin carie was made with an 11 blade scalpel. Deep anesthesia was obtained with 2% lidocaine with epinephrine. Following stereotactic coordinates, a 9 gauge vacuum assisted Suros needle was inserted through the skin carie and positioned anterior to the mass. Pre and post fire images were obtained to confirm accurate positioning. The system was then activated and multiple cores were obtained. A specimen radiograph was not obtained as this is for a mass and not calcifications. A post biopsy localization clip was deployed. The follow up two view mammogram demonstrated the clip to be in satisfactory position, adjacent to the mass. Pressure was held on the biopsy site until all visible signs of bleeding had subsided. The incision was closed with Dermabond/Steri-Strip. An ice pack was given for comfort. Post biopsy instructions were reviewed with the patient. [facility]. Impression: Status post a stereotactically guided core biopsy for area of parenchymal asymmetry in the inner right breast. Pathology pending. Report revised on 07/08/2008 7:56:21 AM by CAIT SAGE Assessment BIRADS: Post procedure mammograms for marker placement Recommendation: No recommendation required Dictated by: CAIT SAGE Electronically signed by: CAIT SAGE 07/02/2008 16:15 Transcribed: 07/01/2008 15:35 AMK Procedure Note Cait Sage - 07/08/2008 [facility] [address] [place], [place] [address] Admit Date: 07/01/2008 KARTIK CORCORAN Sex: F Admit Prov: MONIQUE MCCULLOUGH Date: 1965 Primary Care Prov: VARUN MOLINA CMRN: [id number] Room: [facility] SSN: [id number] IMAGING SERVICES Ordering Prov: MONIQUE MCCULLOUGH Addendum Pathology indicates benign fibrocystic changes. Imaging findingsare concordant. This is a false positive. Recommend routine follow upwith Dr. Mccullough. Assessment BIRADS: Post procedure mammograms for marker placement Recommendation: No recommendation required Dictated by: CAIT SAGE Electronically signed by: CAIT SAGE 07/08/2008 07:56 Transcribed: 07/06/2008 22:30 AMK Interpretation STEREOTACTIC BIOPSY AND FOLLOW UP 2 VIEW MAMMOGRAM, 07/01/2008. History: Parenchymal asymmetry in the right breast. Stereotactic guided core biopsy for an area of asymmetry in the innerright breast was performed. After the lesion was localized stereotactically, the overlying skinwas cleansed with Betadine. 1% lidocaine buffered with sodium bicarbonatewas injected for superficial anesthesia. A small 4 mm skin carie was madewith an 11 blade scalpel. Deep anesthesia was obtained with 2% lidocainewith epinephrine. Following stereotactic coordinates, a 9 gauge vacuumassisted Suros needle was inserted through the skin carie and positionedanterior to the mass. Pre and post fire images were obtained to confirmaccurate positioning. The system was then activated and multiple cores were obtained. A specimen radiograph was not obtained as this is for a mass andnot calcifications. A post biopsy localization clip was deployed. The follow up twoview mammogram demonstrated the clip to be in satisfactory position,adjacent to the mass. Pressure was held on the biopsy site until all visible signs ofbleeding had subsided. The incision was closed with Dermabond/Steri-Strip. Anice pack was given for comfort. Post biopsy instructions were reviewedwith the patient. [facility] left [facility]. Impression: Status post a stereotactically guided core biopsy for area ofparenchymal asymmetry in the inner right breast. Pathology pending. Report revised on 07/08/2008 7:56:21 AM by CAIT SAGE Assessment BIRADS: Post procedure mammograms for marker placement Recommendation: No recommendation required Dictated by: CAIT SAGE Electronically signed by: CAIT SAGE 07/02/2008 16:15 Transcribed: 07/01/2008 15:35 AMK us Monique Mccullough MD MAMMO ORDERABLES Edited * XR CONSULTATION (07/01/2008 10:58 AM CDT) 07/01/2008 10:5 8 AM CDT Narrative INTERFACE SYSTEM - 07/02/2008 4:16 PM CDT [address] [address] Admit Date: 07/01/2008 RAINACAROLINKARTIK Sex: F Admit Prov: JAMEL MONIQUE Date: 1965 Primary Care Prov: VARUN MOLINA CMRN: [id number] Room: NORA SSN: [id number] IMAGING SERVICES Ordering Prov: JAMEL MONIQUE Accession Number: [id number] Interpretation STEREOTACTIC BIOPSY AND FOLLOW UP 2 VIEW MAMMOGRAM, 07/01/2008. History: Parenchymal asymmetry in the right breast. Stereotactic guided core biopsy for an area of asymmetry in the inner right breast was performed. After the lesion was localized stereotactically, the overlying skin was cleansed with Betadine. 1% lidocaine buffered with sodium bicarbonate was injected for superficial anesthesia. A small 4 mm skin carie was made with an 11 blade scalpel. Deep anesthesia was obtained with 2% lidocaine with epinephrine. Following stereotactic coordinates, a 9 gauge vacuum assisted Suros needle was inserted through the skin carie and positioned anterior to the mass. Pre and post fire images were obtained to confirm accurate positioning. The system was then activated and multiple cores were obtained. A specimen radiograph was not obtained as this is for a mass and not calcifications. A post biopsy localization clip was deployed. The follow up two view mammogram demonstrated the clip to be in satisfactory position, adjacent to the mass. Pressure was held on the biopsy site until all visible signs of bleeding had subsided. The incision was closed with Dermabond/Steri-Strip. An ice pack was given for comfort. Post biopsy instructions were reviewed with the patient. [facility] left the [facility] in good condition. Impression: Status post a stereotactically guided core biopsy for area of parenchymal asymmetry in the inner right breast. Pathology pending. Dictated by: CAIT SAGE Electronically signed by: CAIT SAGE 07/02/2008 16:15 Transcribed: 07/01/2008 15:35 AMK Procedure Note Cait Sage - 07/02/[address] [address] Admit Date: 07/01/2008 KARTIK CORCORAN Sex: F Admit Prov: MONIQUE MCCULLOUGH Date: 1965 Primary Care Prov: VARUN MOLINA CMRN: [id number] Room: PEREZMasha SSN: [id number] IMAGING SERVICES Ordering Prov: MONIQUE MCCULLOUGH Interpretation STEREOTACTIC BIOPSY AND FOLLOW UP 2 VIEW MAMMOGRAM, 07/01/2008. History: Parenchymal asymmetry in the right breast. Stereotactic guided core biopsy for an area of asymmetry in the innerright breast was performed. After the lesion was localized stereotactically, the overlying skinwas cleansed with Betadine. 1% lidocaine buffered with sodium bicarbonatewas injected for superficial anesthesia. A small 4 mm skin carie was madewith an 11 blade scalpel. Deep anesthesia was obtained with 2% lidocainewith epinephrine. Following stereotactic coordinates, a 9 gauge vacuumassisted Suros needle was inserted through the skin carie and positionedanterior to the mass. Pre and post fire images were obtained to confirmaccurate positioning. The system was then activated and multiple cores were obtained. A specimen radiograph was not obtained as this is for a mass andnot calcifications. A post biopsy localization clip was deployed. The follow up twoview mammogram demonstrated the clip to be in satisfactory position,adjacent to the mass. Pressure was held on the biopsy site until all visible signs ofbleeding had subsided. The incision was closed with Dermabond/Steri-Strip. Anice pack was given for comfort. Post biopsy instructions were reviewedwith the patient. [facility] left [facility]. Impression: Status post a stereotactically guided core biopsy for area ofparenchymal asymmetry in the inner right breast. Pathology pending. Dictated by: CAIT SAGE Electronically signed by: CAIT SAGE 07/02/2008 16:15 Transcribed: 07/01/2008 15:35 AMK us Monique Mccullough MD DIAGNOSTIC IMAGING ORDERABLES Final Result Performing Organization Address City/State/[facility] Co de Phone Number INTERFACE SYSTEM Refer to clinic/hospital department * MAMMO STEREOTACTIC BREAST BX RT (07/01/2008 10:57 AM CDT) Anatomical Region Laterality Modality Breast Right Other 07/01/2008 10:5 7 AM CDT Narrative 07/02/2008 4:16 PM CDT [facility] [address], [place] [address] Admit Date: 07/01/2008 KARTIK CORCORAN Sex: F Admit Prov: MONIQUE MCCULLOUGH Date: 1965 Primary Care Prov: VARUN MOLINA CMRN: [id number] Room: PEREZMasha SSN: [id number] IMAGING SERVICES Ordering Prov: MONIQUE MCCULLOUGH Accession Number: [id number] Interpretation STEREOTACTIC BIOPSY AND FOLLOW UP 2 VIEW MAMMOGRAM, 07/01/2008. History: Parenchymal asymmetry in the right breast. Stereotactic guided core biopsy for an area of asymmetry in the inner right breast was performed. After the lesion was localized stereotactically, the overlying skin was cleansed with Betadine. 1% lidocaine buffered with sodium bicarbonate was injected for superficial anesthesia. A small 4 mm skin carie was made with an 11 blade scalpel. Deep anesthesia was obtained with 2% lidocaine with epinephrine. Following stereotactic coordinates, a 9 gauge vacuum assisted Suros needle was inserted through the skin carie and positioned anterior to the mass. Pre and post fire images were obtained to confirm accurate positioning. The system was then activated and multiple cores were obtained. A specimen radiograph was not obtained as this is for a mass and not calcifications. A post biopsy localization clip was deployed. The follow up two view mammogram demonstrated the clip to be in satisfactory position, adjacent to the mass. Pressure was held on the biopsy site until all visible signs of bleeding had subsided. The incision was closed with Dermabond/Steri-Strip. An ice pack was given for comfort. Post biopsy instructions were reviewed with the patient. [facility] left the [facility] in good condition. Impression: Status post a stereotactically guided core biopsy for area of parenchymal asymmetry in the inner right breast. Pathology pending. Assessment BIRADS: Post procedure mammograms for marker placement Recommendation: No recommendation required Dictated by: CAIT SAGE Electronically signed by: CAIT SAGE 07/02/2008 16:15 Transcribed: 07/01/2008 15:35 AMK Procedure Note Cait Sage - 07/02/2008 [facility] [address], [place] [address] Admit Date: 07/01/2008 KARTIK CORCORAN Sex: F Admit Prov: MONIQUE MCCULLOUGH Date: 1965 Primary Care Prov: JESSE VARUN K CMRN: [id number] Room: [facility] SSN: [id number] IMAGING SERVICES Ordering Prov: MONIQUE MCCULLOUGH Interpretation STEREOTACTIC BIOPSY AND FOLLOW UP 2 VIEW MAMMOGRAM, 07/01/2008. History: Parenchymal asymmetry in the right breast. Stereotactic guided core biopsy for an area of asymmetry in the innerright breast was performed. After the lesion was localized stereotactically, the overlying skinwas cleansed with Betadine. 1% lidocaine buffered with sodium bicarbonatewas injected for superficial anesthesia. A small 4 mm skin carie was madewith an 11 blade scalpel. Deep anesthesia was obtained with 2% lidocainewith epinephrine. Following stereotactic coordinates, a 9 gauge vacuumassisted Suros needle was inserted through the skin carie and positionedanterior to the mass. Pre and post fire images were obtained to confirmaccurate positioning. The system was then activated and multiple cores were obtained. A specimen radiograph was not obtained as this is for a mass andnot calcifications. A post biopsy localization clip was deployed. The follow up twoview mammogram demonstrated the clip to be in satisfactory position,adjacent to the mass. Pressure was held on the biopsy site until all visible signs ofbleeding had subsided. The incision was closed with Dermabond/Steri-Strip. Anice pack was given for comfort. Post biopsy instructions were reviewedwith the patient. [facility] left the [facility] in good condition. Impression: Status post a stereotactically guided core biopsy for area ofparenchymal asymmetry in the inner right breast. Pathology pending. Assessment BIRADS: Post procedure mammograms for marker placement Recommendation: No recommendation required Dictated by: CAIT SAGE Electronically signed by: CAIT SAGE 07/02/2008 16:15 Transcribed: 07/01/2008 15:35 AMK Monique Mccullough MD MAMMO ORDERABLES Final Result * PATHOLOGY (07/01/2008 10:40 AM CDT) FINAL REPORT [address] [address] Patient: KARTIK CORCORAN : 1965 Procedure Date: 07/01/2008 Accession Date: 07/01/2008 Case No: [id number] Ordering Dr: CAIT SAGE Case types AW, BW, FW, NW and SH are performed by [facility], [place], [place] SURGICAL PATHOLOGY & NON-GYNECOLOGIC CYTOPATHOLOGY REPORT DIAGNOSIS BREAST, RIGHT, CORE BIOPSIES: - FIBROCYSTIC CHANGES. Specimen Description: Right breast mass in formalin at 10:40 a.m. Operative Procedure: Core biopsy. Patient Information/Histo ry/Diagnosis: Mass, rule out malignancy. Gross: Received in a single container labeled Kartik Corcoran, right breast mass are seven cores of yellow-tse fibrofatty tissue, all 0.4 cm in diameter and 2.4, 2.6, 2.6, 2.5, 1.8, 2.5, and 2.5 cm in length. The specimen is submitted entirely in cassettes A1 through A3. EPHRAIM/TED 07.01.2008 03:30 pm Microscopic: The slides are labeled Kartik Corcoran and [id number]. The core biopsies from the right breast show areas of dense fibrosis and scattered cystically-dilate d ducts. There is no significant epithelial hyperplasia or cytologic atypia. COMMENT: Certain proliferative lesions identified in breast biopsies are associated with an increased relative risk for the development of invasive carcinoma. According to data at this time, there is no increased relative risk (compared to the risk for women who have not had a breast biopsy) for patients whose biopsies contain: adenosis; duct ectasia; fibrosis; fibroadenoma (without complex features); mild hyperplasia without atypia; cysts; apocrine or squamous metaplasia. Reference: Arch Pathol Lab Med 1998;122:1053-105 5. TEJA/TED 07.02.2008 04:39 pm Staging Form: No. ELECTRONIC SIGNATURE FOR LALO BLANC M.D.- 07/02/08 06:57 pm INTERFACE SYSTEM 07/01/2008 10:4 0 AM CDT us Cait Sage MD PATHOLOGY/CYTOLOGY ORDERA BLEAngel Final Result INTERFACE SYSTEM Refer to clinic/hospital department documented in this encounter Visit Diagnoses Diagnosis Abnormal mammogram, unspecified documented in this encounter
--- OUTSIDE RECORDS SUMMARY | 2025-01-02 08:31 | XMS_ITS | Encounter Summary ---
Author Organization [facility] Address [address] [place] [address] Phone Care Team Providers Care Supervisor Buffing And Pasting Name Role Phone Andrew Verma MD Primary Care Provider [phone]- [phone] Encounter Details Date Type Department Care Team (Late st Contact Info) Description 10/25/2017 Orders Only [facility] [address] [place] [address] Andrew Verma MD [address] [address] Social History Tobacco Use Types Packs/Day Years Used Date Smoking Tobacco: Never Smokeless Tobacco: Never Alcohol Use Standard Drinks/Week Comments Yes 0 (1 standard drink = 0.6 oz pur e alcohol) Comments Unknown Sex and Gender Information Value Date Recorded Sex Assigned at Not on file Legal Sex Female 6:28 AM FUNDRAISING SALE REPRESENTATIVE Gender Identity Not on file Sexual Orientation Not on file documented as of this encounter Plan of Treatment Not on file documented as of this encounter Procedures Procedure Name Priority Date/Time Associated Diagnosis Comments SCAN - LABS 10/25/2017 11:40 AM FUNDRAISING SALE REPRESENTATIVE documented in this encounter Results * SCAN - LABS (10/25/2017 11:40 AM FUNDRAISING SALE REPRESENTATIVE) us Andrew Verma MD Final Resu lt documented in this encounter Visit Diagnoses Not on filedocumented in this encounter Additional Health Concerns Infection Onset Date Last Indicated Resolved Time COVID: Suspected 07/20/2021 07/20/2021 07/20/2021 2:24 PM CDT COVID19 07/20/2021 07/20/2021 08/03/2021 3:05 AM FUNDRAISING SALE REPRESENTATIVE COVID: Recovered Comment:Added based on recent COVID infection. 08/03/2021 11/07/2021 12/01/2021 3:[address] COVID: Suspected 08/24/2022 08/24/2022 08/24/2022 6:58 AM FUNDRAISING SALE REPRESENTATIVE documented as of this encounter Care Teams Supervisor Buffing And Pasting Relationship Specialty Start Date End Date Andrew Verma MD PCP - General 12/22/16 documented as of this encounter
--- OUTSIDE RECORDS SUMMARY | 2025-01-02 08:31 | XMS_ITS | Encounter Summary ---
Author Organization [facility] Address [address] [place] [address] Phone Care Team Providers Care Crna Name Role Phone Andrew Verma MD Primary Care Provider [phone]- [phone] Encounter Details Date Type Department Care Team (Late st Contact Info) Description 10/24/2017 Orders Only [facility] [address] [place] [address] Andrew Verma MD [address] [address] Social History Tobacco Use Types Packs/Day Years Used Date Smoking Tobacco: Never Smokeless Tobacco: Never Alcohol Use Standard Drinks/Week Comments Yes 0 (1 standard drink = 0.6 oz pur e alcohol) Comments Unknown Sex and Gender Information Value Date Recorded Sex Assigned at Not on file Legal Sex Female 6:28 AM CLICKING MACHINE OPERATOR Gender Identity Not on file Sexual Orientation Not on file documented as of this encounter Plan of Treatment Not on file documented as of this encounter Procedures Procedure Name Priority Date/Time Associated Diagnosis Comments SCAN - LABS 10/24/2017 11:35 AM CLICKING MACHINE OPERATOR documented in this encounter Results * SCAN - LABS (10/24/2017 11:35 AM CLICKING MACHINE OPERATOR) us Anrdew Verma MD Final Resu lt documented in this encounter Visit Diagnoses Not on filedocumented in this encounter Additional Health Concerns Infection Onset Date Last Indicated Resolved Time COVID: Suspected 07/20/2021 07/20/2021 07/20/2021 2:24 PM CDT COVID19 07/20/2021 07/20/2021 08/03/2021 3:05 AM CLICKING MACHINE OPERATOR COVID: Recovered Comment:Added based on recent COVID infection. 08/03/2021 11/07/2021 12/01/2021 3:[address] COVID: Suspected 08/24/2022 08/24/2022 08/24/2022 6:58 AM CLICKING MACHINE OPERATOR documented as of this encounter Care Teams Crna Relationship Specialty Start Date End Date Andrew Verma MD PCP - General 12/22/16 documented as of this encounter
--- OUTSIDE RECORDS SUMMARY | 2025-01-02 08:31 | XMS_ITS | Encounter Summary ---
Author Organization [facility] Address [address] [place] [address] Phone Care Team Providers Care Catalyst Operator Chief Name Role Phone Andrew Verma MD Primary Care Provider [phone]- [phone] Encounter Details Date Type Department Care Team (Late Contact Info) Description 06/25/2017 Orders Only [facility] [address] [place] [address] Mabel Guillermo MA Social History Tobacco Use Types Packs/Day Years Used Date Smoking Tobacco: Never Smokeless Tobacco: Never Alcohol Use Standard Drinks/Week Comments Yes 0 (1 standard drink = 0.6 oz pur e alcohol) Comments Unknown Sex and Gender Information Value Date Recorded Sex Assigned at Not on file Legal Sex Female 6:28 AM TEST SPECIALIST Gender Identity Not on file Sexual Orientation Not on file documented as of this encounter Ordered Prescriptions Prescription Sig Dispense Quantity Refills Last Filled Start Date End Date levothyroxine (SYNTHROID, LEVOTHROID) 100 mcg tablet Take 1 tablet (100 mcg total) by mouth daily. 90 tablet 1 06/25/2017 06/29/2017 documented in this encounter Plan of Treatment Not on file documented as of this encounter Visit Diagnoses Not on filedocumented in this encounter Additional Health Concerns Infection Onset Date Last Indicated Resolved Time COVID: Suspected 07/20/2021 07/20/2021 07/20/2021 2:24 PM CDT COVID19 07/20/2021 07/20/202108/0308/03/2021 3:05 AM TEST SPECIALIST COVID: Recovered Comment:Added based on recent COVID infection. 08/03/2021 11/07/2021 12/01/2021 3:[address] COVID: Suspected 08/24/2022 08/24/2022 08/24/2022 6:58 AM TEST SPECIALIST documented as of this encounter Care Teams Catalyst Operator Chief Relationship Specialty Start Date End Date Andrew Verma MD PCP - General 12/22/16 documented as of this encounter
--- OUTSIDE RECORDS SUMMARY | 2025-01-02 08:31 | XMS_ITS | Encounter Summary ---
Author Organization [facility] Address [address] [place] [address] Care Team Providers Care Solar Tech Name Role Phone Unavailable Primary Care Provider Unavailabl e Encounter Details Date Type Department Care Team (Latest Contact Info) Description 06/02/2008 Outpatient Historical [facility] Monique Mitchell MD [address] [place] [address] Abnormal Mammogram, Unspecified Social History Tobacco Use Types Packs/Day Years Used Date Smoking Tobacco: Never Assessed Comments Unknown Sex and Gender Information Value Date Recorded Sex Assigned at Not on file Legal Sex Female 5:37 AM ORACLE R12 DEVELOPER Gender Identity Not on file Sexual Orientation Not on file documented as of this encounter Plan of Treatment Not on file documented as of this encounter Visit Diagnoses Diagnosis Abnormal mammogram, unspecified documented in this encounter
--- OUTSIDE RECORDS SUMMARY | 2025-01-02 08:31 | XMS_ITS | Encounter Summary ---
Author Organization [facility] Address [address] [place] [address] Care Team Providers Care User Experience Developer Name Role Phone Unavailable Primary Care Provider Unavailabl e Encounter Details Date Type Department Care Team (Latest Contact Info) Description 06/02/2008 Outpatient Historical [facility] Humphrey Mitchell MD [address] [place] [address] Abnormal Mammogram, Unspecified Social History Tobacco Use Types Packs/Day Years Used Date Smoking Tobacco: Never Assessed Comments Unknown Sex and Gender Information Value Date Recorded Sex Assigned at Not on file Legal Sex Female 5:37 AM ASSISTANT VICE PRESIDENT Gender Identity Not on file Sexual Orientation Not on file documented as of this encounter Plan of Treatment Not on file documented as of this encounter Procedures Procedure Name Priority Date/Time Associated Diagnosis Comments MAMMO DIAGNOSTIC UNI RIGHT W OR WO CAD Routine 06/02/2008 10:12 AM CDT US BREAST UNI RIGHT COMPLETE Routine 06/02/2008 10:12 AM CDT documented in this encounter Results * MAMMO DIGITAL DIAG UNI RIGHT (06/02/2008 10:12 AM CDT) Anatomical Region Laterality Modality Breast Right Other 06/02/2008 10:1 2 AM CDT Narrative 06/06/2008 1:44 PM CDT [facility] [address], [place] [address] Admit Date: 06/02/2008 KARIS CORCORAN Sex: F Admit Prov: HUMPHREY MCCULLOUGH Date: 1965 Primary Care Prov: VARUN MOLINA CMRN: [id number] Room: NORA SSN: [id number] IMAGING SERVICES Ordering Prov: HUMPHREY MCCULLOUGH Accession Number: [id number] Addendum Comparison is now made with outside films from [facility] dated 11/02/1998. At that time, patient had a large 10 cm mass lower inner right breast. That has been removed. On our current exam, an area of asymmetric parenchymal density is noted in the inner right breast at the medial edge of the scar. Patient was initially referred for a sonographically guided core biopsy. Shadowing was identified deep to the scar but a mass corresponding to the parenchymal asymmetry seen mammographically could not be identified sonographically. This parenchymal asymmetry was not seen on the previous exam but is in the same quadrant as the previous 10 cm mass. If a pathological diagnosis is strongly desired, we can attempt a stereotactic core biopsy. Alternatively a 6 month interval followup could be performed. Impression: Interval resection of a large 10 cm mass in the lower inner right breast. Area of parenchymal asymmetry identified at the medial edge of the scar on our current exam cannot be identified sonographically. If pathology is desired, a stereotactically guided core biopsy could be attempted. Otherwise a 6 month interval followup is recommended. Overall assessment: BIRADS category 3 - probably benign findings Assessment BIRADS: 3-Probably benign - short interval follow-up Recommendation: Follow-up at short interval Dictated by: CAIT SAGE Electronically signed by: CAIT SAGE 06/06/2008 13:43 Transcribed: 06/06/2008 13:40 AMK Interpretation RIGHT DIAGNOSTIC DIGITAL MAMMOGRAMS WITH COMPUTER ASSISTED DIAGNOSIS RIGHT BREAST SONOGRAMS Date: 06/02/2008 History: Abnormal outside mammogram. Patient had a mammogram at [facility] on 05/06/2008 which demonstrated asymmetric parenchymal density in the inner right breast. She returns for spot views and sonography. On the spot views, asymmetric parenchymal density measuring approximately 2 cm is confirmed. It has the appearance and density of asymmetric glandular tissue. Patient has had a previous biopsy in this area. A scar marker was placed over the biopsy prior to obtaining the spot views. The asymmetric glandular density is just at the medial edge of the scar marker. The CAD system was utilized. Further evaluation with sonography demonstrates an ill-defined hypoechoic area at the edge of the scar. Medial to the scar, there are hypoechoic fatty lobules. There is some dense glandular tissue but it is not as prominent sonographically as mammographically. A definite mass or area of shadowing or distortion is not identified. Patient reports previous mammograms through [facility]. We will attempt to obtain these for comparison. I suspect given the lack of corresponding sonographic findings that this is an area of parenchymal asymmetry, but comparison with the prior films is recommended. If these are not available, a six-month interval followup is recommended. This density would not be amenable to a sonographically guided core biopsy. An excisional biopsy or stereotactically guided core biopsy would be needed. Impression: Parenchymal asymmetry, inner right breast, without evidence of a sonographic correlate. Recommend comparison with prior films for final disposition. BI-RADS Category: 0, incomplete. The patient's prior images will be requested and once received, an addendum will be made. Report revised on 06/06/2008 1:43:47 PM by CAIT SAGE Assessment BIRADS: 0-Incomplete: Need additional imaging evaluation Recommendation: Old films for comparison Dictated by: CAIT SAGE Electronically signed by: CAIT SAGE 06/02/2008 16:04 Transcribed: 06/02/2008 14:39 DKT Procedure Note Cait Sage - 06/06/2008 [facility] [address], [place] [address] Admit Date: 06/02/2008 KELLYKESHA MCCRARYANTONIO Walls Sex: F Admit Prov: HUMPHREY MCCULLOUGH Date: 1965 Primary Care Prov: VARUN MOLINA CMRN: [id number] Room: NORA SSN: [id number] IMAGING SERVICES Ordering Prov: HUMPHREY MCCULLOUGH Addendum Comparison is now made with outside films from [facility] dated 11/02/1998. At that time, patient had a large 10 cm mass lowerinner right breast. That has been removed. On our current exam, an areaof asymmetric parenchymal density is noted in the inner right breast atthe medial edge of the scar. Patient was initially referred for a sonographically guided core biopsy. Shadowing was identified deep tothe scar but a mass corresponding to the parenchymal asymmetry seen mammographically could not be identified sonographically. Thisparenchymal asymmetry was not seen on the previous exam but is in the samequadrant as the previous 10 cm mass. If a pathological diagnosis is stronglydesired, we can attempt a stereotactic core biopsy. Alternatively a 6 monthinterval followup could be performed. Impression: Interval resection of a large 10 cm mass in the lower inner rightbreast. Area of parenchymal asymmetry identified at the medial edge of thescar on our current exam cannot be identified sonographically. If pathologyis desired, a stereotactically guided core biopsy could be attempted. Otherwise a 6 month interval followup is recommended. Overall assessment: BIRADS category 3 - probably benign findings Assessment BIRADS: 3-Probably benign - short interval follow-up Recommendation: Follow-up at short interval Dictated by: CAIT SAGE Electronically signed by: CAIT SAGE 06/06/2008 13:43 Transcribed: 06/06/2008 13:40 AMK Interpretation RIGHT DIAGNOSTIC DIGITAL MAMMOGRAMS WITH COMPUTER ASSISTEDDIAGNOSIS RIGHT BREAST SONOGRAMS Date: 06/02/2008 History: Abnormal outside mammogram. Patient had a mammogram at [facility] on 05/06/2008which demonstrated asymmetric parenchymal density in the inner rightbreast. She returns for spot views and sonography. On the spot views, asymmetric parenchymal density measuringapproximately 2 cm is confirmed. It has the appearance and density of asymmetricglandular tissue. Patient has had a previous biopsy in this area. A scar markerwas placed over the biopsy prior to obtaining the spot views. Theasymmetric glandular density is just at the medial edge of the scar marker. The[employer] system was utilized. Further evaluation with sonography demonstrates an ill-definedhypoechoic area at the edge of the scar. Medial to the scar, there arehypoechoic fatty lobules. There is some dense glandular tissue but it is notas prominent sonographically as mammographically. A definite mass orarea of shadowing or distortion is not identified. Patient reports previous mammograms through [facility]. We will attempt to obtain these for comparison. I suspect given the lackof corresponding sonographic findings that this is an area ofparenchymal asymmetry, but comparison with the prior films is recommended. Ifthese are not available, a six-month interval followup is recommended. Thisdensity would not be amenable to a sonographically guided core biopsy. An excisional biopsy or stereotactically guided core biopsy would beneeded. Impression: Parenchymal asymmetry, inner right breast, without evidence of a sonographic correlate. Recommend comparison with prior films for final disposition. BI-RADS Category: 0, incomplete. The patient's prior images will be requested and once received, an addendum will be made. Report revised on 06/06/2008 1:43:47 PM by CAIT SAGE Assessment BIRADS: 0-Incomplete: Need additional imagingevaluation Recommendation: Old films for comparison Dictated by: CAIT SAGE Electronically signed by: CAIT SAGE 06/02/2008 16:04 Transcribed: 06/02/2008 14:39 DKT us Humphrey Mccullough MD MAMMO ORDERABLES Edited * US BREAST UNILATERAL RIGHT (06/02/2008 10:12 AM CDT) Anatomical Region Laterality Modality Breast Right Other 06/02/2008 10:1 2 AM CDT Narrative 06/02/2008 4:04 PM CDT [facility] [address], [place] [address] Admit Date: 06/02/2008 KARIS CORCORAN Sex: F Admit Prov: HUMPHREY MCCULLOUGH Date: 1965 Primary Care Prov: VARUN MOLINA CMRN: [id number] Room: NORA SSN: [id number] IMAGING SERVICES Ordering Prov: HUMPHREY MCCULLOUGH Accession Number: [id number] Interpretation RIGHT DIAGNOSTIC DIGITAL MAMMOGRAMS WITH COMPUTER ASSISTED DIAGNOSIS RIGHT BREAST SONOGRAMS Date: 06/02/2008 History: Abnormal outside mammogram. Patient had a mammogram at [facility] on 05/06/2008 which demonstrated asymmetric parenchymal density in the inner right breast. She returns for spot views and sonography. On the spot views, asymmetric parenchymal density measuring approximately 2 cm is confirmed. It has the appearance and density of asymmetric glandular tissue. Patient has had a previous biopsy in this area. A scar marker was placed over the biopsy prior to obtaining the spot views. The asymmetric glandular density is just at the medial edge of the scar marker. The CAD system was utilized. Further evaluation with sonography demonstrates an ill-defined hypoechoic area at the edge of the scar. Medial to the scar, there are hypoechoic fatty lobules. There is some dense glandular tissue but it is not as prominent sonographically as mammographically. A definite mass or area of shadowing or distortion is not identified. Patient reports previous mammograms through [facility]. We will attempt to obtain these for comparison. I suspect given the lack of corresponding sonographic findings that this is an area of parenchymal asymmetry, but comparison with the prior films is recommended. If these are not available, a six-month interval followup is recommended. This density would not be amenable to a sonographically guided core biopsy. An excisional biopsy or stereotactically guided core biopsy would be needed. Impression: Parenchymal asymmetry, inner right breast, without evidence of a sonographic correlate. Recommend comparison with prior films for final disposition. BI-RADS Category: 0, incomplete. The patient's prior images will be requested and once received, an addendum will be made. Dictated by: CAIT SAGE Electronically signed by: CAIT SAGE 06/02/2008 16:04 Transcribed: 06/02/2008 14:40 DKT Procedure Note Cait Sage - 06/02/[address] [address] Admit Date: 06/02/2008 KARIS CORCORAN Sex: F Admit Prov: HUMPHREY MCCULLOUGH Date: 1965 Primary Care Prov: VARUN MOLINA CMRN: [id number] Room: [facility] SSN: [id number] IMAGING SERVICES Ordering Prov: HUMPHREY MCCULLOUGH Interpretation RIGHT DIAGNOSTIC DIGITAL MAMMOGRAMS WITH COMPUTER ASSISTEDDIAGNOSIS RIGHT BREAST SONOGRAMS Date: 06/02/2008 History: Abnormal outside mammogram. Patient had a mammogram at [facility] on 05/06/2008which demonstrated asymmetric parenchymal density in the inner rightbreast. She returns for spot views and sonography. On the spot views, asymmetric parenchymal density measuringapproximately 2 cm is confirmed. It has the appearance and density of asymmetricglandular tissue. Patient has had a previous biopsy in this area. A scar markerwas placed over the biopsy prior to obtaining the spot views. Theasymmetric glandular density is just at the medial edge of the scar marker. TheCAD system was utilized. Further evaluation with sonography demonstrates an ill-definedhypoechoic area at the edge of the scar. Medial to the scar, there arehypoechoic fatty lobules. There is some dense glandular tissue but it is notas prominent sonographically as mammographically. A definite mass orarea of shadowing or distortion is not identified. Patient reports previous mammograms through [facility]. We will attempt to obtain these for comparison. I suspect given the lackof corresponding sonographic findings that this is an area ofparenchymal asymmetry, but comparison with the prior films is recommended. Ifthese are not available, a six-month interval followup is recommended. Thisdensity would not be amenable to a sonographically guided core biopsy. An excisional biopsy or stereotactically guided core biopsy would beneeded. Impression: Parenchymal asymmetry, inner right breast, without evidence of a sonographic correlate. Recommend comparison with prior films for final disposition. BI-RADS Category: 0, incomplete. The patient's prior images will be requested and once received, an addendum will be made. Dictated by: CAIT SAGE Electronically signed by: CAIT SAGE 06/02/2008 16:04 Transcribed: 06/02/2008 14:40 DKT Humphrey Mccullough MD ORDERABLES Final Result documented in this encounter Visit Diagnoses Diagnosis Abnormal mammogram, unspecified documented in this encounter
--- OUTSIDE RECORDS SUMMARY | 2025-01-02 08:31 | XMS_ITS | Clinical Summary ---
Author Organization [facility] Address [address] [place] [address] Phone Care Team Providers Care Comsec Manager Name Role Phone Andrew Verma MD Primary Care Provider Imtiaz Iqbal MD Unavailable [phone] Nae Duque MD Unavailable [phone] Linda Jolly MD Unavailable [phone] Morgan Castaneda MD Unavailable [phone] Robbie Rivera MD Unavailable Evi Martínez DO Unavailable [phone] Allergies Active Allergy Reactions Criticality Noted Date Comments Morphine Vomiting 09/22/2015 Sulfa Antibiotics Unknown 09/22/2015 Hydrocodone-Acetaminophen Vomiting 09/22/2015 Medications metoprolol Succinate (TOPROL-XL) 25 MG TABLET SR 24 HR Take 25 mg by mouth daily. Active potassium chloride SA (K-DUR) 20 MEQ Tablet Controlled Release Take 20 mEq by mouth daily. Active estradiol (ESTRACE) 1 MG Tablet Take 1 mg by mouth daily. Hazardous: Medication requires special safe handling and disposal. Active topiramate (TOPAMAX) 25 MG Tablet 3 Active sertraline (ZOLOFT) 100 MG Tablet 3 Active lansoprazole (PREVACID SOLUTAB) 30 MG Tablet Delayed Release Dispersible Take 30 mg by mouth. Active albuterol 108 (90 Base) MCG/ACT Aerosol Solution take 2 Puffs by inhalation. 1 Active lisinopril (PRINIVIL, ZESTRIL) 5 MG Tablet Take 5 mg by mouth daily. 4 01/18/20 25 Active sertraline (ZOLOFT) 100 MG Tablet Take 1 Tablet by mouth 2 times daily. 4 Active levothyroxine (SYNTHROID) 200 MCG Tablet Take 1 Tablet by mouth daily. 90 Tablet 1 5 Active tirzepatide-kia ght management (Zepbound) 10 MG/0.5ML Solution Auto-injector 10 mg by Subcutaneous route once a week. 6 mL 1 5 Active Active Problems Problem Noted Date Diagnosed Date Obesity, Class II, BMI 35-39.9 10/24/2017 Overview (03/13/2019): BMI 35.53 on 03/13/2019. Status post radioactive iodine thyroid ablation 10/23/2017 Overview (10/23/2017): Received 50 mCi of I-131 as thyroid ablative therapy 12/26/2013. Major depressive disorder, r ecurrent episode, moderate with anxious distress 05/11/2017 Post-surgical hypothyroidism 09/22/2015 Overview (10/24/2017): Total thyroidectomy 05/21/2012. 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 Her total thyroidectomy was 05/21/2012. She received 50 mCi of I-131 as thyroid ablative therapy 12/26/2013. Resolved Problems Problem Noted Date Diagnosed Date Resolved Date Class 2 severe obesity due t o excess calories with serious comorbidity and body mass index (BMI) of 36.0 to 36.9 in adult 05/24/2019 0 Long-term current use of thy roid hormone replacement therapy 10/26/2017 03/13/2019 History of weight loss surgery 10/24/2017 03/13/2019 Overview (10/24/2017): Laparoscopic Dodie-en-Y gastric bypass 12/22/2016 History of total thyroidectomy 10/23/2017 03/13/2019 Overview (10/23/2017): Total thyroidectomy 05/21/2012 Thyroid cancer 03/13/2019 Hypothyroidism 03/13/2019 Encounters Date Type Department Care Team Description 11/10/2024 10:15 AM RECRUITING OPERATIONS CONSULTANT Office Visit [facility] - Endocrin[facility] [address] [place] [address] Robbie Rivera MD Post-surgical hypothyroidism (Primary Dx); Class 1 obesity due to excess calories with serious comorbidity and body mass index (BMI) of 31.0 to 31.9 in adult; Financial difficulties; New medication added Discharge Disposition: Discharged to home or Selfcare 11/10/2024 Travel from Last 3 Months Family History Medical History Relation Name Comments Hypertension Brother 1 Diabetes Brother 2 Hypertension Brother 2 Diabetes Brother 3 Hypertension Brother 3 Cancer Father Bladder Ca Congestive Heart Failure Father Hypertension Father Cancer Mother Breast Ca Congestive Heart Failure Mother Depression Mother Hypertension Mother No Known Problems Sister Relation Name Status Comments Brother 1 Alive Brother 2 Alive Brother 3 Alive Father Mother Sister Alive Social History Tobacco Use Types Packs/Day Years Used Date Smoking Tobacco: Never Smokeless Tobacco: Never Tobacco Cessation:Counseling Given: Not Answered Alcohol Use Standard Drinks/Week Comments No 0 (1 standard drink = 0.6 oz pure alcohol) no drinking due to recent gastric bypass surgery Sexually Active Control Partners Comments Yes Male Comments No Sex and Gender Information Value Date Recorded Sex Assigned at Not on file Legal Sex Female 12:07 AM CDT Gender Identity Not on file Sexual Orientation Not on file Last Filed Vital Signs Vital Sign Reading Time Taken Comments Blood Pressure 122/74 11/10/2024 10:05 AM RECRUITING OPERATIONS CONSULTANT Pulse 95 11/10/2024 10:05 AM RECRUITING OPERATIONS CONSULTANT Temperature 36.1 C (96.9 F) 11/10/2024 10:05 AM RECRUITING OPERATIONS CONSULTANT Respiratory Rate 20 11/10/2024 10:05 AM RECRUITING OPERATIONS CONSULTANT Oxygen Saturation 99% 11/10/2024 10:05 AM RECRUITING OPERATIONS CONSULTANT Inhaled Oxygen Concentration - - Weight 74.8 kg (165 lb) 11/10/2024 10:05 AM RECRUITING OPERATIONS CONSULTANT Height 154.9 cm (5' 1 ) 02/14/2024 3:20 PM CDT Body Mass Index 31.18 02/14/2024 3:20 PM CDT Plan of Treatment Upcoming Encounters Date Type Department Care Team (Late st Contact Info) Description 02/11/2025 9:30 AM CDT Office Visit [facility] - Endocrinology - [place] [address] [place] [phone] Robbie Rivera MD [address] [phone] Health Maintenance Due Date Last Done Comments Hepatitis C Virus (HCV) Screening 1966 TdaP Immunization 1966 Hepatitis B Immunization (1 of 3 - 19+ 3-dose series) 1985 Colonoscopy 11/29/2011 Colorectal Cancer Screening 11/29/2011 Cologuard 2016 Immunochemical Fecal Occult Blood 2016 Pneumococcal Immunization (5 0+ years) (1 of 1 - PCV) 2016 Zoster Immunization (1 of 2) 2016 Mammogram 12/03/2021 12/03/2020, 12/03/2020, 08/19/2019 SARS-COV-2 Immunization (2 - 2023- season) 2024 03/15/2021 Influenza Immunization (Seas on Ended) 2025 Respiratory Syncytial Virus (RSV) Immunization (Adult) (1 - 1-dose 75+ series) 2041 Meningococcal Immunization (ACWY) Aged Out No longer eligible b ased on patient's age to complete this topic Rotavirus Immunization Aged Out No lo nger eligible based on patient's age to complete this topic Insurance [facility] Care Teams Comsec Manager Relationship Specialty Start Date End Date Andrew Verma MD [address] [place] [address] PCP - General Internal Medicine 07/10/15 Imtiaz Iqbal MD [address] [place] [address] Consulting Physician Radiation Oncology 09/22/15 Nae Duque MD [address] [place] [address] Consulting Physician Obstetrics & Gynecology 09/22/15 Linda Jolly MD [address] [place] [address] Consulting Physician Bariatrics 10/24/17 Morgan Castaneda MD [address] [facility] [place] [address] Consulting Physician Plastic Surgery 03/13/19 Robbie Rivera MD [address] [address] [address] Consulting Physician Endocrinology 04/15/19 Evi Martínez DO [address] [address] Consulting Physician Otolaryngology 10/02/19
--- OUTSIDE RECORDS SUMMARY | 2025-01-02 08:31 | XMS_ITS | Referral Summary ---
Author Organization [facility] Address [address] [address] Care Team Providers Care Pipe Foreman Name Role Phone Andrew Verma MD Primary Care Provider [phone] Encounters Date Type Department Care Team Description 11/11/2024 Telephone [facility] [address] [place] [phone] Yojana Clement, ASHANTI 11/11/2024 Results Follow-Up [facility] [address] [place] [phone] Andrew Verma MD 11/10/2024 Orders Only [facility] [address] [place] [address] Ameena Shell DO Encounter for screening mammogram for malignant neoplasm of breast (Primary Dx) 11/10/2024 2:10 PM MANUFACTURING MILLWRIGHT Lab [facility] [address] [place] [phone] Primary hypertension; History of thyroid cancer 11/10/2024 1:30 PM MANUFACTURING MILLWRIGHT Office Visit [facility] [address] [place] [address] Andrew Verma MD Colon cancer screening (Primary Dx); Need for hepatitis B screening test; Primary hypertension; Status post radioactive iodine thyroid ablation; Hypothyroidism (acquired); Weight loss 11/10/2024 3:00 PM MANUFACTURING MILLWRIGHT Office Visit [facility] [address] [facility] [address] [place] [address] Ameena Shell DO Encounter for annual routine gynecological examination (Primary Dx); Encounter for screening mammogram for malignant neoplasm of breast; Menopausal symptoms 10/13/2024 [facility] [address] [facility] [address] [place] [address] Andrew Verma MD Earache 10/09/2024 9:45 AM MANUFACTURING MILLWRIGHT Ancillary Procedure [facility] [address] [facility] [address] [place] [address] SOB (shortness of breath) on exertion 10/09/2024 9:00 AM MANUFACTURING MILLWRIGHT Office Visit [facility] [address] [facility] [address] [place] [address] Andrew Verma MD SOB (shortness of breath) on exertion (Primary Dx); Acute cough; History of thyroid cancer; Flu syndrome 10/08/2024 Telephone [facility] [address] [facility] [address] [place] [address] Andrew Verma MD Earache 10/05/2024 9:00 AM MANUFACTURING MILLWRIGHT Office Visit [facility] Care at [address] [phone] Jose Ramon Bailey NP Acute suppurative otitis media of both ears without spontaneous rupture of tympanic membranes, recurrence not specified (Primary Dx); Influenza A from Last 3 Months Allergies Active Allergy Reactions Criticality Noted Date [...] 1 tablet (200 mcg total) by mouth supervisor concrete block plant before breakfast 5 Active estradioL (ESTRACE) 2 mg tabletIndications: Menopausal symptoms Take 1 tablet (2 mg total) by mouth daily 90 tablet 3 5 Active Active Problems Problem Noted Date Diagnosed Date Need for hepatitis B screening test 11/10/2024 Weight loss 11/10/2024 Assessment & Plan (11/10/2024 4:55 PM MANUFACTURING MILLWRIGHT): 100 lb weight loss compared weights from 2013 to present weight.. Had bariatric surgery prior to 2018. She has lost 57 lb dating back to 2022 maintained on Zenpep bound/GLP 1 GLP injectable product once weekly was prescribed by another provider Flu syndrome 10/09/2024 Assessment & Plan (10/09/2024 6:00 PM MANUFACTURING MILLWRIGHT): Patient currently has a flu feeling very [...] 10/09/2024 Assessment & Plan (10/09/2024 5:59 PM MANUFACTURING MILLWRIGHT): Patient went to urgent Care facility advised [...] 10/09/2024 Assessment & Plan (10/09/2024 6:01 PM MANUFACTURING MILLWRIGHT): Acute cough for several days x-rays negative she is bringing up clear sputum. Supportive care at this time Fatigue 10/08/2023 Assessment & Plan (10/09/2024 5:58 PM MANUFACTURING MILLWRIGHT): Patient currently has a flu feeling very [...] her. Assessment & Plan (10/08/2023 5:45 PM MANUFACTURING MILLWRIGHT): Fatigue shortness breath depression. Will check a [...] 10/08/2023 Assessment & Plan (10/08/2023 5:48 PM MANUFACTURING MILLWRIGHT): Patient complains of shortness of breath on [...] he was in his early 20s. Patient's cynwbmiy-pl-cum are 2 small children now living with her. I have referred this patient grief counseling. Also made adjustments and a depressant medication. Hypothyroidism (acquired) 05/04/2020 Assessment & Plan (11/10/2024 4:48 PM MANUFACTURING MILLWRIGHT): Mg daily her food safety technician Dr. [facility] has changed her over to levothyroxine 200 mcg daily. Assessment & Plan (03/01/2024 4:09 PM CDT): Patient's thyroid is managed by food safety technician [facility]. Recently changed to Armor thyroid tablets 30 mg daily she thinks this has also helped her with her mood and weight changes. Assessment & Plan (11/11/2021 4:27 PM MANUFACTURING MILLWRIGHT): TSH level is 8.8 she had a [...] 03/22/2019 Assessment & Plan (11/10/2024 4:46 PM MANUFACTURING MILLWRIGHT): History and physical completed patient's health risk assessment health maintenance reviewed and addressed. Feels well she is getting pass her previous upper respiratory tract symptoms. She is losing weight on purpose. Her BMI is down to 30 Assessment & Plan (10/08/2023 5:41 PM MANUFACTURING MILLWRIGHT): History and physical completed patient's health risk [...] grief. Assessment & Plan (12/03/2020 4:57 PM MANUFACTURING MILLWRIGHT): History and physical completed patient's health risk [...] for weight loss in his working. Paying igx-ny-atzsel she feels as well worth it with response she is gotten. No change in depression medications. Zoloft 100 mg twice a day. Assessment & Plan (10/08/2023 5:43 PM MANUFACTURING MILLWRIGHT): Patient complains of fatigue other component she [...] mg. Assessment & Plan (12/03/2020 4:54 PM MANUFACTURING MILLWRIGHT): Patient discontinue Viibryd she was doing very [...] 05/21/2012. Assessment & Plan (10/08/2023 5:42 PM MANUFACTURING MILLWRIGHT): Patient's [facility] management [facility] Assessment & Plan (04/23/2018 9:56 AM CDT): [...] do. Assessment & Plan (10/08/2023 5:45 PM MANUFACTURING MILLWRIGHT): Pressure well controlled patient however I am [...] today. Assessment & Plan (11/11/2021 4:30 PM MANUFACTURING MILLWRIGHT): Blood pressure remains well patient is tolerating medication no change in therapy Assessment & Plan (12/03/2020 4:55 PM MANUFACTURING MILLWRIGHT): Hypertension well controlled patient tolerating medication no [...] This patient had GI bypass surgery at [facility] on December 22, 2016 and has lost approximately 40 pounds. She has a follow-up visit and to the month. She informs we have follow-up laboratory studies will be done at that time. Depression 10/16/2012 Overview (12/29/2016): Depression Assessment & Plan (11/10/2024 4:49 PM MANUFACTURING MILLWRIGHT): Depression in remission on sertraline 100 mg daily Assessment & Plan (04/23/2018 5:58 PM CDT): Patient depression is very stable it has improved since her last visit. No change in therapy. 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 She is willing to [place] with daughter counselor but not yet willing to see Psychiatry. Plans refer her to [facility] psychological services. Patient states she will accept this informant therapy for her. Assessment & Plan (05/01/2017 9:58 AM CDT): . Patient continues to have some depression symptoms slight improvement. Will continue Viibryd. Gastroesophageal reflux disease 10/16/2012 Overview (12/29/2016): GERD (gastroesophageal reflux disease) Assessment & Plan (11/11/2021 4:29 PM MANUFACTURING MILLWRIGHT): Patient taking Tums sometimes 2 sometimes min is 6 per day is not very effective half to time. However the Tums interfering possible with her thyroid medication. Plans patient will take Prevacid kcng-qkt-[id number] advised to take 2 tablets she will take her thyroid medicine in the morning and Prevacid in the evening to prevent interference with levothyroxine absorption. Resolved Problems Problem Noted Date Diagnosed Date Resolved Date Cholecystitis 08/24/2022 12/25/2022 Pneumonia due to COVID-19 virus 08/01/2021 12/25/2022 Assessment & Plan (11/11/2021 4:31 PM MANUFACTURING MILLWRIGHT): Patient's 95% back to normal following COVID pneumonia Assessment & Plan (08/09/2021 3:35 PM MANUFACTURING MILLWRIGHT): Patient is improving she notice less coughing, [...] 24. Assessment & Plan (08/01/2021 3:06 PM MANUFACTURING MILLWRIGHT): Patient has had continued complications post covid 19 diagnosis on 07/20/21. Symptoms began originally around 07/13/21. She last week on 07/28/[address] chest and CXR suggestive of covid 19 pneumonia. She was started on antibiotics as discussed with physician and she will complete. We held on steroids as she had just completed a medrol dose pack from [employer] about a week prior. 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 Not on file Not on file Last Filed Vital Signs Vital Sign Reading Time Taken Comments Blood Pressure 116/68 11/10/2024 2:23 PM MANUFACTURING MILLWRIGHT Pulse 98 11/10/2024 1:34 PM MANUFACTURING MILLWRIGHT Temperature 36.6 C (97.8 F) 11/10/2024 1:34 PM MANUFACTURING MILLWRIGHT Respiratory Rate 16 11/10/2024 1:34 PM MANUFACTURING MILLWRIGHT Oxygen Saturation 97% 11/10/2024 1:34 PM MANUFACTURING MILLWRIGHT Inhaled Oxygen Concentration - - Weight 75.3 kg (166 lb) 11/10/2024 2:23 PM MANUFACTURING MILLWRIGHT Height 157.5 cm (5' 2 ) 11/10/2024 2:23 PM MANUFACTURING MILLWRIGHT Body Mass Index 30.36 11/10/2024 2:23 PM MANUFACTURING MILLWRIGHT Plan of Treatment Not on file Procedures Procedure Name Priority Date/Time Associated Diagnosis Comments LIPID PANEL Routine 11/10/2024 2:07 PM MANUFACTURING MILLWRIGHT Primary hypertension HEPATITIS B SURFACE ANTIGEN Routine 11/10/2024 2:07 PM MANUFACTURING MILLWRIGHT History of thyroid cancer HEPATITIS B CORE ANTIBODY, TOTAL Routine 11/10/2024 2:07 PM MANUFACTURING MILLWRIGHT History of thyroid cancer HEPATITIS B SURFACE ANTIBODY (IMMUNE STATUS) Routine 11/10/2024 2:07 PM MANUFACTURING MILLWRIGHT History of thyroid cancer XR CHEST PA LATERAL 2 VIEWS Schedule Routine, Read Routine (OP Routine) 10/09/2024 9:51 AM MANUFACTURING MILLWRIGHT SOB (shortness of breath) on exertion SCREENING MAMMOGRAM 2D BILATERAL Schedule Routine, Read Routine (OP Routine) 12/03/2020 3:32 PM MANUFACTURING MILLWRIGHT Encounter for screening mammogram for malignant neoplasm of breast HEPATITIS C ANTIBODY Routine 08/06/2019 10:45 AM MANUFACTURING MILLWRIGHT Screening examination for venereal disease from Last 3 Months or Most Recently Relevant to Health Maintenance Results * Hepatitis B core antibody, total Blood (11/10/2024 2:07 PM MANUFACTURING MILLWRIGHT) Pathologist [facility] Hep B core IgG/IgM Nonreactive Nonreactive Comment:Testing performed by : [facility], [address] [place]., [address] Blood 11/10/2024 2:07 PM MANUFACTURING MILLWRIGHT 11/11/2024 10:28 AM MANUFACTURING MILLWRIGHT Andrew Verma MD LAB MICROBIOLOGY - GENERAL ORDERABLES Final Result Performing Organization Address City/[facility] Co de Phone Number ANTELMO BECK [address] [place] [address] * Hepatitis B surface antibody (immune status) Blood (11/10/2024 2:07 PM MANUFACTURING MILLWRIGHT) [facility] HBsAb (immune status) Nonreactive Comment: Interpretive Data [...] revised on 19. Testing performed by: [facility], [address] [place] [address]., [id number] Blood 11/10/2024 2:07 PM MANUFACTURING MILLWRIGHT 11/10/2024 6:10 PM MANUFACTURING MILLWRIGHT Andrew Verma MD LAB MICROBIOLOGY - GENERAL ORDERABLES Final Result Performing Organization Address City/[facility]/ZIP Co de Phone Number ANTELMO BECK [address] [place] [address] * Hepatitis B Surface Antigen Blood (11/10/2024 2:07 PM MANUFACTURING MILLWRIGHT) HepBsAg Nonreactive Nonreactive Comment:Testing performed by : [facility], [address] [place] [address]., [id number] Blood 11/10/2024 2:07 PM MANUFACTURING MILLWRIGHT 11/10/2024 6:10 PM MANUFACTURING MILLWRIGHT us Andrew Verma MD LAB MICROBIOLOGY - GENERAL ORDERABLES Final Result [facility] [id number] [place] [address] Department [place] [address] * Lipid panel (11/10/2024 2:07 PM MANUFACTURING MILLWRIGHT) Cholesterol 174 30 - 199 mg/dL Comment: [...] last revised on 2018. Testing performed by: [address] [address] Triglycerides 70 <=149 mg/dL ANTELMO BECK Comment: [...] revised on 2018. Testing performed by: [facility], [address] [place] [address]., [address] HDL 59 >=40 mg/dL ANTELMO Comment: Interpretive Data Ages < or = [...] revised on 2018. Testing performed by: [facility], [address] [place] [address]., [id number] LDL, calculated 102 <=129 mg/dL ANTELMO Comment: Interpretive Data Ages < or = [...] last revised on 2024. Testing performed by: [address] [address] Non-HDL Cholesterol 115 mg/dL ANTELMO Comment: Interpretive Data Ages < or = [...] revised on 2018. Testing performed by: [facility], [address] [place] [address]., [id number] Chol/HDL ratio 3 ANTEMLO BECK Comment:Testing performed by : [facility], [address] [place] [address]., [id number] Blood 11/10/2024 2:07 PM MANUFACTURING MILLWRIGHT 11/10/2024 6:10 PM MANUFACTURING MILLWRIGHT us Andrew Verma MD LAB BLOOD ORDERABLES Final Result ANTELMO [address] [facility] Department [place] [address] * XR Chest PA Lateral 2 Views (10/09/2024 9:51 AM MANUFACTURING MILLWRIGHT) Anatomical Region Laterality Modality Body, Chest N/A Computed Radiogr aphy 10/10/2024 3:58 PM MANUFACTURING MILLWRIGHT Narrative 10/10/2024 3:59 PM MANUFACTURING MILLWRIGHT EXAM DESCRIPTION: XR CHEST PA LATERAL 2 [...] Anette Younger D.O. PS: PS Report ID: [id number] Reading Location: [id number] Procedure Note Anette Younger, DO - 10/10/2024 EXAM DESCRIPTION: XR CHEST [...] Anette Younger D.O. PS: PS Report ID: [id number] Reading Location: [id number] us Andrew Verma MD IMG XR PROCEDURES Final Re sult * Screening Mammogram 2D Bilateral (12/03/2020 3:32 PM MANUFACTURING MILLWRIGHT) Anatomical Region Laterality Modality Breast Bilateral Mammography [...] BI-RADS Category 2: Benign. PATIENT LETTER SENT us Rosamaria Ross HEALTH AND SAFETY SPECIALIST IMG MAMMO PROCEDURES Irma l Result * Hepatitis C antibody (08/06/2019 10:45 AM MANUFACTURING MILLWRIGHT) Hep C Ab Negative Negative ANTELMO BECK Blood specimen (specimen) 08/06/2019 10:45 AM MANUFACTURING MILLWRIGHT 08/06/2019 7:35 PM MANUFACTURING MILLWRIGHT Rosamaria Ross HEALTH AND SAFETY SPECIALIST LAB MICROBIOLOGY - GENERA L ORDERABLES Final Result ANTELMO BECK [id number] Department [place] [address] from Last 3 Months or Most Recently Relevant to Health Maintenance Insurance [employer] [place] [employer] [place] Care Teams Pipe Foreman Relationship Specialty Start Date End Date Andrew Verma MD PCP - General 12/22/16
--- OUTSIDE RECORDS SUMMARY | 2025-01-02 08:31 | XMS_ITS | Encounter Summary ---
Author Organization [facility] Healthcare Address [address] [place] [address] Care Team Providers Care Manager Of Enterprise Name Role Phone Andrew Verma MD Primary Care Provider [phone]- [phone] Encounter Details Date Type Department Care Team (Late st Contact Info) Description 11/11/2024 Results Follow-Up [facility] Medical Group [facility] [address] [place] [address] Andrew Verma MD [address] [place] [address] Social History Tobacco Use Types Packs/Day Years [...] on file Legal Sex Female 6:28 AM CANVAS GOODS SUPERVISOR Gender Identity Not on file Sexual Orientation Not on file Occupation Industry Job Start Date Job End Date [employer] Not on file Not on file Not on file documented as of this encounter Miscellaneous Notes * Result Encounter Note - Yojana Clemetn RN - 11/11/2024 1:59 PM CST See telephone note AS GOODS SUPERVISOR * Telephone Encounter - Andrew Verma MD - 11/11/2024 1:52 PM CANVAS GOODS SUPERVISOR Notify patient lipid profile excellent control no change in therapy. Viral tests for hepatitis-B and C results were good. AS GOODS SUPERVISOR documented in this encounter Plan of Treatment Not on file documented as of this encounter Visit Diagnoses Not on filedocumented in this encounter Care Teams Manager Of Enterprise Relationship Specialty Start Date End Date Andrew Verma MD PCP - General 12/22/16 documented as of this encounter
--- OUTSIDE RECORDS SUMMARY | 2025-01-02 08:31 | XMS_ITS | Encounter Summary ---
Author Organization [facility] Address [address] [place] [address] Care Team Providers Care Resident Care Aide Name Role Phone Unavailable Primary Care Provider Unavailabl e Encounter Details Date Type Department Care Team (Late st Contact Info) Description 06/23/2008 Outpatient Historical HIS MRI DEPT Humphrey Mccullough MD [address] [facility] [address] [place] [phone] Family History of Malignant Neoplasm of Breast Social History Tobacco Use Types Packs/Day Years Used Date Smoking Tobacco: Never Assessed Comments Unknown Sex and Gender Information Value Date Recorded Sex Assigned at Not on file 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 Gender Identity Not on file Sexual Orientation Not on file documented as of this encounter Plan of Treatment Not on file documented as of this encounter Procedures Procedure Name Priority Date/Time Associated Diagnosis Comments XR CONSULTATION Timed Study 06/23/2008 12:57 PM CDT documented in this encounter Results * XR CONSULTATION (06/23/2008 12:57 PM CDT) 06/23/2008 12:5 7 PM CDT Narrative INTERFACE SYSTEM - 07/12/2008 9:50 PM CDT [address] [address] Admit Date: 06/23/2008 KARIS CORCORAN Sex: F Admit Prov: DANIS MCCULLOUGHNE Date: 1965 Primary Care Prov: VARUN MOLINA CMRN: [id number] Room: [facility] SSN: [id number] IMAGING SERVICES Ordering Prov: JAMELHUMPHREY BRIGHT Accession Number: [id number] Interpretation The procedure was performed by Radiology Department nursing staff. Dictated by: RADIOLOGY, DEPARTMENT O Electronically signed by: RADIOLOGY, DEPARTMENT 07/12/2008 21:41 Transcribed: 07/11/2008 08:39 AMK Procedure Note Radiology, Radiologist - 07/12/2008 [facility] [address] [place], [place] [address] Admit Date: 06/23/2008 KESHA CORCORANANTONIO Walls Sex: F Admit Prov: HUMPHREY MCCULLOUGH Date: 1965 Primary Care Prov: VARUN MOLINA CMRN: [id number] Room: [facility] SSN: [id number] IMAGING SERVICES Ordering Prov: HUMPHREY MCCULLOUGH Interpretation The procedure was performed by Radiology Department nursing staff. Dictated by: RADIOLOGY, DEPARTMENT O Electronically signed by: RADIOLOGY, DEPARTMENT 07/12/2008 21:41 Transcribed: 07/11/2008 08:39 AMK us Humphrey Mccullough MD DIAGNOSTIC IMAGING ORDERABLES Final Result INTERFACE SYSTEM Refer to clinic/hospital department documented in this encounter Visit Diagnoses Diagnosis Family history of malignant neoplasm of breast documented in this encounter
--- OUTSIDE RECORDS SUMMARY | 2025-01-02 08:31 | XMS_ITS | Clinical Summary ---
Author Organization [place] Address [address] [facility] Attn: Epic Prelude ADT ESTELLA OZUNA [address] Care Team Providers Care Facilities Director Name Role Phone Unavailable Primary Care Provider Unavailabl e Social History Tobacco Use Types Packs/Day Years Used Date Smoking Tobacco: Never Assessed Comments Unknown Sex and Gender Information Value Date Recorded Sex Assigned at Not on file Legal Sex Female 5:37 AM BUTT MAKER Gender Identity Not on file Sexual Orientation Not on file Plan of Treatment Health Maintenance Due Date Last Done Comments DTAP/TDAP/TD VACCINES (1 - Tdap) 1985 HEPATITIS B VACCINES (1 of 3 - 19+ 3-dose series) 1985 HPV/Cotest (21-29) 11/29/1987 PAP SMEAR 11/29/1987 CERVICAL CANCER SCREENING 1996 HPV/Cotest (30-65) 1996 PAP SMEAR 1996 BREAST CANCER SCREENING 07/01/2009 07/01/2008, 06/02 COLORECTAL SCREENING 11/29/2011 Colorectal Cancer Screening 11/29/2011 FIT-DNA Q 3 years 11/29/2011 FIT/FOBT Q 1 year 11/29/2011 Flex Sig/CT Colonography Q 5 years 11/29/2011 ZOSTER VACCINE (1 of 2) 2016 INFLUENZA VACCINE (#1) 2024 Procedures Procedure Name Priority Date/Time Associated Diagnosis Comments MAMMO DIAGNOSTIC UNI RIGHT W OR WO CAD Routine 07/01/2008 10:58 AM CDT from Last 3 Months or Most Recently Relevant to Health Maintenance Results * MAMMO DIGITAL DIAG UNI RIGHT (07/01/2008 10:58 AM CDT) Anatomical Region Laterality Modality Breast Right Other 07/01/2008 10:5 8 AM CDT Narrative 07/08/2008 7:57 AM CDT [facility] [address] [place], [place] [address] Admit Date: 07/01/2008 KARIS CORCORAN Sex: F Admit Prov: HUMPHREY MCCULLOUGH Date: 1965 Primary Care Prov: VARUN MOLINA CMRN: [id number] Room: [facility] SSN: [id number] IMAGING SERVICES Ordering Prov: HUMPHREY MCCULLOUGH Accession Number: [id number] Addendum Pathology indicates benign fibrocystic changes. Imaging [...] AMK Procedure Note Cait Sage - 07/08/2008 [facility] [address] [place], [place] [address] Admit Date: 07/01/2008 KARIS CORCORAN Sex: F Admit Prov: DANIS MCCULLOUGHNE Date: 1965 Primary Care Prov: VARUN MOLINA CMRN: [id number] Room: [facility] SSN: [address] [place] [address] IMAGING SERVICES Ordering Prov: JAMEL HUMPHREY Addendum Pathology indicates benign fibrocystic changes. Imaging [...] 07/02/2008 16:15 Transcribed: 07/01/2008 15:35 AMK us Humphrey Mccullough MD MAMMO ORDERABLES Edited from Last 3 Months or Most Recently Relevant to Health Maintenance
--- OUTSIDE RECORDS SUMMARY | 2025-01-02 08:31 | XMS_ITS | Encounter Summary ---
[facility] Address [address] [place] [address] Phone Care Team Providers Care Cloth Grader Name Role Phone Andrew Verma MD Primary Care Provider +1- [phone] Encounter Details Date Type Department Care Team (Late st Contact Info) Description 12/27/2017 Orders Only [facility] [address] [place] [address] Andrew Verma MD [address] [address] Social History Tobacco Use Types Packs/Day Years Used Date Smoking Tobacco: Never Smokeless Tobacco: Never Alcohol Use Standard Drinks/Week Comments Yes 0 (1 standard drink = 0.6 oz pur e alcohol) Comments Unknown Sex and Gender Information Value Date Recorded Sex Assigned at Not on file Legal Sex Female 6:28 AM WELL DRILL OPERATOR ROTARY DRILL Gender Identity Not on file Sexual Orientation Not on file documented as of this encounter Plan of Treatment Not on file documented as of this encounter Procedures Procedure Name Priority Date/Time Associated Diagnosis Comments SCAN - LABS 12/27/2017 9:27 AM CDT documented in this encounter Results * SCAN - LABS (12/27/2017 9:27 AM CDT) us Andrew Verma MD Final Resu lt documented in this encounter Visit Diagnoses Not on filedocumented in this encounter Additional Health Concerns Infection Onset Date Last Indicated Resolved Time COVID: Suspected 07/20/2021 07/20/2021 07/20/2021 2:24 PM CDT COVID19 07/20/2021 07/20/2021 08/03/2021 3:05 AM WELL DRILL OPERATOR ROTARY DRILL COVID: Recovered Comment:Added based on recent COVID infection. 08/03/2021 11/07/2021 12/01/2021 3:[address] COVID: Suspected 08/24/2022 08/24/2022 08/24/2022 6:58 AM WELL DRILL OPERATOR ROTARY DRILL documented as of this encounter Care Teams Cloth Grader Relationship Specialty Start Date End Date Andrew Verma MD PCP - General 12/22/16 documented as of this encounter
--- OUTSIDE RECORDS SUMMARY | 2025-01-02 08:31 | XMS_ITS | Encounter Summary ---
Author Organization [facility] Address [address] [place] [address] Care Team Providers Care Agricultural Purchasing Agent Name Role Phone Unavailable Primary Care Provider Unavailabl e Encounter Details Date Type Department Care Team (Late st Contact Info) Description 06/10/2008 Outpatient Historical HIS MRI DEPT Monique Shelton MD [address] [facility] [address] [place] [phone] Personal History of Malignant Neoplasm of Breast Social History Tobacco Use Types Packs/Day Years Used Date Smoking Tobacco: Never Assessed Comments Unknown Sex and Gender Information Value Date Recorded Sex Assigned at Not on file Legal Sex Female 5:37 AM CLINICAL RN Gender Identity Not on file Sexual Orientation Not on file documented as of this encounter Plan of Treatment Not on file documented as of this encounter Visit Diagnoses Diagnosis Personal history of malignant neoplasm of breast documented in this encounter
== END 2025-01-02 08:21 | disposition home or self-care (01) ==
LOC: ANHAUDASC 08:23
PROVIDERS: PCP Internal Medicine; Visit Provider Otolaryngology Otolaryngology/Facial Plastic Surgery
DX: H91.8X9 Other specified hearing loss, unspecified ear (principal)
CPT/HCPCS: 92557; 92567